=== PATIENT | male | born 1955 | race Caucasian/White ===

== ENCOUNTER → 2016-06-09 | Outpatient (CLI) | payer OTHER ==
[~2016-06-09] MED LIST: AMLO-114 PO; ASPI81CH2 PO; ATOR-26 PO; CLOP1TAB5 PO; IMDSR30 PO; ISOS30TA3 PO; LPR25 PO; LSN/2025 PO; METO25TA56 PO; NITR0.4S UT; POTA10CA28 PO; VGR50 PO
[2016-06-09 17:42] LABS: BASO % 0.6 %; BASO ABS # 0.05 K/uL (0-0.2); COMPLETE YES; EOS % 4.8 %; HEMATOCRIT 44.5 % (42-52); IG% 0.1 %; LYMPH % 28.1 %; LYMPH ABS # 2.42 K/uL (1.2-3.4); MEAN CORPUSCULAR HEMOGLOBIN 32.2 pg (25-34); MEAN CORPUSCULAR HGB CONC 36.2 g/dl (32-36); MEAN PLATELET VOLUME 9.6 fL (7.4-10.4); NEUT % 56.4 %; PLATELET COUNT 193 K/uL (130-400)
[2016-06-09 17:52] LABS: PARTIAL THROMBOPLASTIN RATIO 1.1; PROTHROMBIN TIME (PATIENT) 11.1 SECONDS (9.0-12.0)
[2016-06-09 18:13] LABS: BLOOD UREA NITROGEN 13 mg/dl (7-18); BUN/CREATININE RATIO 13.3 (10-20); CALCIUM 8.9 mg/dl (8.5-10.1); CARBON DIOXIDE 27 mmol/L (21-32); CHLORIDE 101 mmol/L (98-107); GLUCOSE 101 mg/dl (70-99); POTASSIUM 3.2 mmol/L (3.5-5.1); SODIUM 139 mmol/L (136-145)
== END | disposition home or self-care (01) ==
LOC: C.LAB1850 16:43
PROVIDERS: ATTEND Internal Medicine
DX: I20.9 Angina pectoris, unspecified (principal)

== ENCOUNTER 2016-06-11 10:15 | Observation (INO) | payer OTHER ==
[2016-06-11] VITALS (11 sets, daily range): BP systolic 117–136; BP diastolic 67–81; PULSE 62–94; TEMP 36.5–36.7; O2SAT 91–98; Ht 170.2 cm; Wt 106.7 kg
[~2016-06-11] VITALS: Ht 170.2 cm; Wt 106.7 kg
[~2016-06-11 10:15] MED LIST changes: -AMLO-114 PO; -ISOS30TA3 PO; -LPR25 PO; -POTA10CA28 PO; -VGR50 PO
[2016-06-11] MEDS ORDERED: VGR50 PO (11:12)
[2016-06-11] MEDS ORDERED: AMLO-114 PO (11:12)
[2016-06-11] MEDS ORDERED: ASPIRIN 81 MG CHEW ONE (12:47)
[2016-06-11] MEDS ORDERED: HEPARIN SOD (PORCINE) 1000 UNIT/ML 10 ML VIAL ONE (13:02)
[2016-06-11] MEDS ORDERED: FENTANYL CITRATE INJ 50 MCG/1 ML 2 ML VIAL ONE (13:02)
[2016-06-11] MEDS ORDERED: NiCARDipine HCL INJ 2.5 MG/ML 10 ML AMP ONE (13:02)
[2016-06-11] MEDS ORDERED: MIDAZOLAM HCL 1 MG/ML 2ML VIAL ONE (13:02)
[2016-06-11] MEDS ORDERED: NITROGLYCERIN/D5W 100MCG/ML 20ML SYR ONE (13:03)
[2016-06-11] MEDS ORDERED: CLOPIDOGREL BISULFATE 300 MG TAB PO ONE (14:26)
--- NOTE | 2016-06-11 14:36 | History & Physical Bridge Note ---
H&P Re-Evaluation Bridge Note: I have examined the patient, reviewed the History & Physical and in the interval since the performance of the History & Physical I have noted the following changes of clinical significance: No changes noted
--- NOTE | 2016-06-11 14:36 | Procedure Note ---
Pre-Mod Sedation Assessment General Date of Moderate Sedation: Jun 11, 2016. Vital Signs: Vital Signs Past 12 Hours Date Time Temp Pulse Resp B/P Pulse Ox O2 Delivery O2 Flow Rate FiO2 06/11/16 14:30 76 16 142/76 96 Room Air 06/11/16 14:25 Room Air 06/11/16 14:20 Room Air 06/11/16 14:15 75 16 154/87 96 Room Air 06/11/16 10:22 36.5 69 16 129/67 98 Room Air Review Cardiovascular: regular rate, rhythm, no edema, no gallop, no JVD Abdomen: normal bowel sounds, non tender, soft Lungs: chest non-tender, lungs clear, normal breath sounds Airway Class: II Pre-Sedation Airway Assessment Oral Cavity: Dentures Able to Visualize Vocal Cords: No Short Thick Neck: No Hx of Sleep Apnea: No Smoking Status: Never Smoker Mallampati Classification: Class III ASA Classification: Class II Procedure Planning Contraindications-for Mod Sed: None Yes Notes The planned sedation has been discussed with the patient and consent obtained. I have identified the patient, determined the appropriateness of sedation and have assessed the patient immediately prior to the procedure. All medicine(s) and interventions are by my order.
--- NOTE | 2016-06-11 14:37 | Procedure Note ---
Post-Mod Sedation Assessment General Date of Moderate Sedation Jun 11, 2016. Vital Signs: Vital Signs Past 12 Hours Date Time Temp Pulse Resp B/P Pulse Ox O2 Delivery O2 Flow Rate FiO2 06/11/16 14:30 76 16 142/76 96 Room Air 06/11/16 14:25 Room Air 06/11/16 14:20 Room Air 06/11/16 14:15 75 16 154/87 96 Room Air 06/11/16 10:22 36.5 69 16 129/67 98 Room Air Review - Discharge Criteria Vital Signs Stable: Yes Alert/Oriented/Conversant: Yes Returned to Baseline Mental St: Yes Nausea Absent/Minimal: Yes Pain/Discomfort/Absent/Minimal: Yes Normal/Baseline Respirations: Yes Active Bleeding?: No Pt Received D/C Instructions: No Prescriptions Given: None Specific Proced. D/C Criteria Distal Pulses Present (Cardiac: Yes Groin site assessed-Card Cath: N/A Voided Prior To Discharge: N/A Discharged Patients Adult Escort/Transportation: Yes
[2016-06-11] MEDS ORDERED: SODIUM CHLORIDE 0.9% 1000ML 1,000 ML IV SCH (14:45)
[2016-06-11] MEDS ORDERED: ACETAMINOPHEN 325 MG TAB PO PRN (14:45)
[2016-06-11] MEDS ORDERED: NITROGLYCERIN 0.4 MG SL PER TAB CHARGE UT SCH (14:45)
[2016-06-11] MEDS ORDERED: ONDANSETRON INJ 2 MG/ML 2 ML VIAL IV PRN (14:45)
--- NOTE | 2016-06-11 15:04 | Cardiac Catheterization ---
Procedure Note Procedure Date Jun 11, 2016. 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 Whitmore Corrections Caseworker(s) Lele Estimated Blood Loss 20 Medication(s) Fentanyl, Heparin, Nicardipine, Nitroglycerin, Versed, Lidocaine 1% Summary of Findings Indication: Accelerating angina Access: 6 Fr slender sheath right radial artery Catheters: [place], EBU 3.5 Findings: LM - Luminal irregularities LAD - 30-40% distal in-stent restenosis, 95% focal stenosis at distal end of mid LAD stent at level of small 3r diagonal. 3rd diagonal with 80% ostial stenosis Circumflex - Non-dominant, 50-60% mid segment stenosis - not significantly changed from 2014 RCA - Dominant, proximal stents are patent with 20-30% in-stent restenosis, mild distal disease. 30% ostial PDA disease. Mild distal CATRINA/PLB disease. PCI: Equipment: BMW wire, 2.5 x 12 TREK balloon, 3.0 x 26 Resolute JERRICA, 3.5 x 12 NC TREK Antithrombotic therapy: Heparin to ACT >250 Procedure: BMW wire placed past lesion into distal LAD. Lesion predilated with 2.5 balloon 3.0 x 26 Resolute JERRICA overlapped with prior mid LAD stent Stent post-dilated with 3.5 NC balloon Good angiographic result with well-expanded stent, JENNA 3 flow and no significant residual stenosis. Very small OM3 subtotally occluded post stent deployment. Improving TIMI1-2 flow with final images and chest pain free. Arterial Closure: TR Band Summary: 1. Severe single vessel coronary artery disease - 95% stenosis at distal edge of prior mid LAD stent 2. Successful PCI of mid LAD lesion with 3.0 x 26 Resolute JERRICA overlapped with prior stent Recommendations: Admit to telemetry for observation Reloaded with plavix 300 mg in laborer landscape Continue dual-antiplatelet therapy with ASA/Plavix for at least 6 months Continue home statin, and prior antihypertensives Cardiac Rehab Family interested in patient referral to weight management. Hemodynamics Rest Ao: 99/63/78 Final Ao: 152/79/109 LV: n/a Recommendations PCI without planned CABG Specimens None Radiation Exposure (mGy) 2260 Contrast (mls) 135 Opti Fluids (cc crystalloids) 130 Drains None Anesthesia Moderate Procedural Complication(s) None Disposition PCU ACC Data Cardiac Status Clinical evaluation leading to the procedure CAD Presntation: Unstable angina Anginal Classification: CCS IV Heart Failure: No, NYHA Class: CCS I Cardiogenic Shock w/in 24Hrs: No Cardiac Arrest w/in 24Hrs: No Imaging studies past 6 months: No Stress studies past 6 months: No Standard Exercise Stress Test: No Stress Echocardiogram: No Stress Testing w/SPECT MPI: No Cardiac CTA: No Coronary Anatomy Dominant: Right Left Main (% Stenosis): Normal LAD (% Stenosis): Mid (95% at distal edge of stent) Circumflex (% Stenosis): Mid (50-60) RCA (% Stenosis): Proximal (20-30 instent) Diagnostic Physician's Name: Aiden Whitmore MD Closure Device Percutaneous Entry Location: Radial Closure Device: Radial Band Recommendations: PCI without planned CABG PCI Indication: Unstable Angina, Angina despite med therapy Lesion Segment Name: MID LAD Culprit Artery: Yes Stenosis Prior to Rx (%): 95 Chronic Total Occlusion: No IVUS: No FFR: No Pre-Procedure JENNA Flow: 3 Previously Treated Lesion: No Lesion Complexity: Non-High/Non-C Lesion Length (mm): 12 Thrombus Present: No Bifurcation Lesion: No Guidewire Across Lesion: Yes Guidewire: Stenosis Post-Procedure (%): 0 Post-Procedure JENNA Flow: 3 Device(s) Deployed: Yes Type of Device(s): RESOLUTE 3.0 X 26 Intraprocedure Events Significant Dissection: No Perforation: No
[2016-06-11] MEDS ORDERED: IV FLUIDS COMPLETED PRN (15:30)
[2016-06-11] MEDS: LISINOPRIL/HCTZ 20/25MG TAB PO SCH (19:56)
[2016-06-11] MEDS ORDERED: ATORVASTATIN 40 MG TAB PO SCH (21:00)
[2016-06-12 04:00] VITALS: BP 119/76; PULSE 68; TEMP 36.6; O2SAT 92
[2016-06-12 06:53] LABS: BASO % 0.7 %; BASO ABS # 0.05 K/uL (0-0.2); COMPLETE YES; EOS % 4.7 %; HEMATOCRIT 43.7 % (42-52); IG% 0.1 %; LYMPH % 24.5 %; LYMPH ABS # 1.88 K/uL (1.2-3.4); MEAN CELL VOLUME 90.9 fL (80-100); MEAN CORPUSCULAR HGB CONC 35.2 g/dl (32-36); MEAN PLATELET VOLUME 9.4 fL (7.4-10.4); MONO % 6.1 %; NEUT % 63.9 %; PLATELET COUNT 181 K/uL (130-400); RED BLOOD COUNT 4.81 M/uL (4.7-6.1); WHITE BLOOD COUNT 7.67 K/uL (4.8-10.8)
[2016-06-12 07:31] VITALS: BP 122/63; PULSE 65; TEMP 36.8; O2SAT 94
[2016-06-12 07:31] LABS: BUN/CREATININE RATIO 16.9 (10-20); CALCIUM 8.5 mg/dl (8.5-10.1); CREATININE 0.93 mg/dl (0.60-1.40); POTASSIUM 3.5 mmol/L (3.5-5.1)
[2016-06-12] MEDS: LISINOPRIL/HCTZ 20/25MG TAB PO SCH (07:42)
[2016-06-12] MEDS ORDERED: CLOPIDOGREL BISULFATE 75 MG TAB PO SCH (09:00)
[2016-06-12] MEDS ORDERED: ASPIRIN 81 MG ECTAB PO SCH (09:00)
[2016-06-12] MEDS ORDERED: METOPROLOL TARTRATE 25 MG TAB PO SCH (09:00)
[2016-06-12] MEDS ORDERED: AMLODIPINE BESYLATE 5 MG TAB PO SCH (09:00)
[2016-06-12] MEDS ORDERED: LPR25 PO (10:35)
--- NOTE | 2016-06-12 10:38 | Discharge Instructions ---
Discharge Instructions Admission Reason for Admission: Chest Pain *Dr Whitmore To Do* Discharge Discharge Diagnosis / Problem: Coronary artery disease Discharge Goals Goal(s): Improve function Activity Recommendations Activity Limitations: per Instructions/Follow-up section Lifting Limitations: no more than 5 pounds ( for 3 days) Exercise/Sports Limitations: gradually increase as tolerated May Resume Sexual Activity: after one week Driving or Machine Use: resume 3 days after discharge . Instructions / Follow-Up Instructions / Follow-Up appointment requested with Thien or Dr. Whitmore Current Hospital Diet Patient's current hospital diet: AHA Diet (Heart Healthy) Discharge Diet Recommended Diet: AHA Diet (Heart Healthy) Procedures Procedures Performed: Cardiac catheterization - one new drug eluting stent placed in the LAD Pending Studies Studies pending at discharge: no Work Instructions Return To Work: 1 week Lifting Limitations: 5 lbs for 3 days Medical Emergencies . Who to Call and When: Medical Emergencies: If at any time you feel your situation is an emergency, please call 911 immediately. . Non-Emergent Contact Non-Emergency issues call your: Primary Care Provider, Plastic Sewer . . "Provider Documentation" section prepared by Abhilash Casas. VTE Core Measure Inpt VTE Proph given/why not?: Unfractionated heparin SQ
--- NOTE | 2016-06-12 10:41 | Discharge Summary ---
Discharge Summary Admission Date: Jun 11, 2016 at 14:42 Discharge Date: Jun 12, 2016 Discharge Disposition: Home Primary Diagnosis: Unstable angina Secondary Diagnoses/Problems: CAD Procedures: cath 06/11/16 - one JERRICA LAD Discharge Instructions Last Recorded Wt (Kilograms): 106.700 Activity Recommendations: lifting limitation, exercise/sex/sports limit, driving or machine use limit Diet At Discharge: low sodium, low cholesterol Allergies: Coded Allergies: Labetalol (Unverified Allergy, Mild, hallucination, 06/11/16) Discharge Medications: Medications Dose Route/Sig Max Daily Dose Days Date Category Lopressor (Metoprolol Tartrate) 25 Mg Tab 12.5 Mg PO BID 90 06/12/16 Rx Viagra (Sildenafil Citrate) 50 Mg Tab 50 Mg PO PRN 06/11/16 Reported Norvasc (Amlodipine Besylate) 10 Mg Tab 10 Mg PO DAILY 06/11/16 Reported Lopressor (Metoprolol Tartrate) 25 Mg Tab 12.5 Mg PO DAILY 02/23/14 Reported Plavix (Clopidogrel Bisulfate) 75 Mg Tab 75 Mg PO DAILY 02/23/14 Reported Nitrostat (Nitroglycerin) 0.4 Mg Sub 0.4 Mg UT PRN 02/23/14 Reported Lipitor (Atorvastatin Calcium) 80 Mg Tab 80 Mg PO HS 02/23/14 Reported Aspirin 81 Mg Chw 81 Mg PO DAILY 02/23/14 Reported Lisinopril/Hctz 20/25 Mg (HCTZ/Lisinopril) 1 Ea Tab 1 Tab PO BID 02/23/14 Reported Special Care: Call your doctor if: * Temperature above 101 degrees * Pain not relieved by pain medicine ordered * There is increased drainage or redness from any incision * You have any unanswered questions or concerns. Avoid all tobacco products. If you need help to stop smoking, call [place] FREE QUITLINE at . This is a free call. Admission HPI [facility] - cath 06/11/16 - one JERRICA LAD good result. Hospital Course one JERRICA LAD 06/11/16 - good result. asymptomatic overnight. f/u with Thien or Haim. residual LCx disease - PCI in future if symptomatic. no new meds. discharge today. run of tachycardia overnight - asymptomatic. continue BB. titrate as able as an outpatient. Total time spent on discharge = 45 This includes examination of the patient, discharge planning, medication reconciliation, and communication with other providers.
[2016-06-12 11:14] VITALS: BP 122/63; PULSE 65; TEMP 36.8; O2SAT 94
== END 2016-06-12 11:57 | disposition home or self-care (01) ==
LOC: C.CATH 10:15 → C.2T 14:42
PROVIDERS: ADMIT Internal Medicine Interventional Cardiology; ATTEND Internal Medicine Interventional Cardiology
DX: I25.110 Atherosclerotic heart disease of native coronary artery with unstable angina pectoris (principal); I10 Essential (primary) hypertension; E78.5 Hyperlipidemia, unspecified; Z87.891 Personal history of nicotine dependence; Z79.82 Long term (current) use of aspirin

== ENCOUNTER 2016-06-22 09:46 | Emergency (ER) | payer OTHER ==
[~2016-06-22] VITALS: Ht 170.2 cm; Wt 106.7 kg
[~2016-06-22 09:46] MED LIST changes: +AMLO-114 PO; -IMDSR30 PO; +LPR25 PO; -METO25TA56 PO; +VGR50 PO
[2016-06-22 09:53] VITALS: TEMP 37.6; Ht 170.2 cm; Wt 106.7 kg
[2016-06-22 10:07] VITALS: O2SAT 93
[2016-06-22 10:51] LABS: HEMATOCRIT 44.3 % (42-52); MEAN CELL VOLUME 89.3 fL (80-100); MEAN CORPUSCULAR HEMOGLOBIN 32.7 pg (25-34); MEAN CORPUSCULAR HGB CONC 36.6 g/dl (32-36); MEAN PLATELET VOLUME 9.5 fL (7.4-10.4); PLATELET COUNT 209 K/uL (130-400); RED BLOOD COUNT 4.96 M/uL (4.7-6.1); WHITE BLOOD COUNT 7.35 K/uL (4.8-10.8)
[2016-06-22] MEDS ORDERED: POTA10CA28 PO (10:53)
[2016-06-22 11:00] LABS: ALT/SGPT 50 U/L (12-78); BLOOD UREA NITROGEN 17 mg/dl (7-18); BUN/CREATININE RATIO 17.1 (10-20); CALCIUM 9.1 mg/dl (8.5-10.1); CARBON DIOXIDE 28 mmol/L (21-32); CHLORIDE 101 mmol/L (98-107); GLUCOSE 123 mg/dl (70-99); POTASSIUM 3.6 mmol/L (3.5-5.1); SODIUM 139 mmol/L (136-145)
[2016-06-22 11:02] LABS: INR 1.1 (0.9-1.1); PARTIAL THROMBOPLASTIN RATIO 1.1; PROTHROMBIN TIME (PATIENT) 11.3 SECONDS (9.0-12.0)
[2016-06-22 11:04] LABS: ALB/GLOB RATIO 1.2 (0.9-2); ALKALINE PHOSPHATASE 52 U/L (45-117); AST/SGOT 26 U/L (15-37)
--- NOTE | 2016-06-22 11:09 | DIAGNOSTIC IMAGING REPORT ---
SINGLE VIEW CHEST CLINICAL HISTORY: Atypical chest pain. FINDINGS: An AP, portable, upright chest radiograph is compared to study dated 12/26/2012. Correlation is made with chest CT dated 12/15/2009. The examination is mildly degraded by portable technique and apical lordotic positioning. The cardiomediastinal silhouette is unremarkable. The lungs and pleural spaces are clear. No pneumothorax is seen. The bony thorax is grossly intact. IMPRESSION: No acute cardiopulmonary abnormality. Electronically signed by: Nayan Delgado M.D. 06/22/2016 11:07 AM Dictated Date/Time: 06/22/2016 11:06 AM
[2016-06-22] MEDS ORDERED: ISOS30TA3 PO (12:12)
[2016-06-22 12:33] VITALS: BP 130/73; PULSE 59; O2SAT 92
--- NOTE | 2016-06-22 14:53 | EMERGENCY ROOM VISIT NOTE ---
History Report prepared by Leah: Mya Miranda Under the Supervision of: Dr. Nayan Carr M.D. First contact with patient: 10:32 Chief Complaint: CHEST PAIN Stated Complaint: CHEST PAIN - STENT PLACEMENT ON 06/11 Nursing Triage Summary: stent on jun 11, started having chest pain since , pt tried to call his pcp unable to get in so he decided to wait until today, pain comes and go denies pain at present History of Present Illness The patient is a 60 year old male who presents to the Emergency Room with complaints of intermittent episodes of pain to his left chest, radiating to his left neck, over the past 6 days. Currently, he is in minor discomfort, but when rizwana a pain it reaches up to a 4/10 on the pain scale, and lasts for about 10-30 seconds before resolving on its own. Patient states that he was recently experiencing pain to his left chest in the begging of the month, and had a coronary stent placed by Dr. Whitmore of cardiology on 06/11/16. Patient states that this was his fourth stent. After having the stent placed, patient was doing well and was improving well, however, 6 days ago, he began having intermittent pains to his left chest, radiating to his left neck. Patient denies exacerbation of symptoms with exertion, and states that nothing seems to provoke it or make it better. He denies becoming short of breath, nauseous or diaphoretic when rizwana a pain. The patient did attempt to call his vice president lending's office, but has not yet been able to schedule a post operative follow up appointment. However, as his pain has persisted, he came to the ED for further evaluation today. He denies recent fevers, chills, cough, abdominal pain, vomiting, diarrhea, urinary symptoms or swelling to his extremities . Patient is currently on Plavix, aspirin, lisinopril with HCTZ and metoprolol. He is also prescribed nitroglycerin PRN, but he has not recently taken any. Source of History: patient Onset: over the past 6 days Position: chest Symptom Intensity: 4/10 Timing: intermittent Associated Symptoms: + neck pain (radiating from left chest), No SOB, No abdominal pain, No chills, No cough, No diaphoresis, No diarrhea, No nausea, No urinary symptoms, No vomiting Review of Systems See HPI for pertinent positives & negatives. A total of 10 systems reviewed and were otherwise negative. Past Medical & Surgical Medical Problems: (1) CAD (coronary artery disease) (2) HTN (hypertension) Surgical Problems: (1) H/O heart artery stent Social History Smoking Status: Former Smoker Marital Status: single Occupation Status: employed Current/Historical Medications Scheduled Amlodipine (Norvasc), 10 MG PO DAILY Aspirin (Aspirin), 81 MG PO DAILY Atorvastatin (Lipitor), 80 MG PO HS Clopidogrel Bisulfate (Plavix), 75 MG PO DAILY Hctz/Lisinopril (Lisinopril/Hctz 20/25 Mg), 1 TAB PO BID Isosorbide Mononitrate Ext Rel (Imdur Ext Rel), 1 TAB PO DAILY Metoprolol Tartrate (Lopressor), 12.5 MG PO BID Nitroglycerin (Nitrostat), 0.4 MG UT PRN Potassium Chloride (Micro-K Ext Rel), 10 MEQ PO DAILY Allergies Coded Allergies: Labetalol (Unverified Allergy, Mild, hallucination, 06/22/16) Physical Exam Vital Signs Date Time Temp Pulse Resp B/P Pulse Ox O2 Delivery O2 Flow Rate FiO2 06/22/16 12:33 59 18 130/73 92 06/22/16 11:18 60 14 131/64 92 Room Air 06/22/16 10:16 94 Room Air 06/22/16 10:07 93 Room Air 06/22/16 09:55 67 06/22/16 09:53 37.6 67 18 168/95 93 Room Air Physical Exam GENERAL: Patient is in no acute distress. HEENT: No acute trauma, normocephalic atraumatic, mucous membranes moist, no nasal congestion, no scleral icterus. NECK: No stridor, no adenopathy, no meningismus, trachea is midline. LUNGS: Clear to auscultation bilaterally, no wheeze, no rhonchi, breath sounds equal. HEART: 2/6 systolic murmur with a regular rate and rhythm. ABDOMEN: Soft, nontender, bowel sounds positive, no hernias, no peritonitis. EXTREMITIES: No cyanosis or edema, full range of motion of all the joints without pain or difficulty, no signs for acute trauma. NEUROLOGIC: Oriented x 3, no acute motor or sensory deficits, no focal weakness. SKIN: No rash, no jaundice, no diaphoresis. Medical Decision & Procedures ER Provider Diagnostic Interpretation: X-ray results as stated below per interpretation by me and the radiologist: SINGLE VIEW CHEST CLINICAL HISTORY: Atypical chest pain. FINDINGS: An AP, portable, upright chest radiograph is compared to study dated 12/26/2012. Correlation is made with chest CT dated 12/15/2009. The examination is mildly degraded by portable technique and apical lordotic positioning. The cardiomediastinal silhouette is unremarkable. The lungs and pleural spaces are clear. No pneumothorax is seen. The bony thorax is grossly intact. IMPRESSION: No acute cardiopulmonary abnormality. Electronically signed by: Nayan Delgado M.D. 06/22/2016 11:07 AM Dictated Date/Time: 06/22/2016 11:06 AM Laboratory Results 06/22/16 10:03 06/22/16 10:03 Test 06/22/16 10:03 Red Blood Count 4.96 M/uL (4.7-6.1) Mean Corpuscular Volume 89.3 fL (80-100) Mean Corpuscular Hemoglobin 32.7 pg (25-34) Mean Corpuscular Hemoglobin Concent 36.6 g/dl (32-36) RDW Standard Deviation 41.4 fL (36.4-46.3) RDW Coefficient of Variation 12.8 % (11.5-14.5) Mean Platelet Volume 9.5 fL (7.4-10.4) Prothrombin Time 11.3 SECONDS (9.0-12.0) Prothromb Time International Ratio 1.1 (0.9-1.1) Activated Partial Thromboplast Time 28.0 SECONDS (21.0-31.0) Partial Thromboplastin Ratio 1.1 Anion Gap 10.0 mmol/L (3-11) Est Creatinine Clear Calc Drug Dose 93.8 ml/min Estimated GFR () 95.7 Estimated GFR (Non- 82.6 BUN/Creatinine Ratio 17.1 (10-20) Calcium Level 9.1 mg/dl (8.5-10.1) Total Bilirubin 0.5 mg/dl (0.2-1) Aspartate Amino Transf (AST/SGOT) 26 U/L (15-37) Alanine Aminotransferase (ALT/SGPT) 50 U/L (12-78) Alkaline Phosphatase 52 U/L (45-117) Troponin I < 0.015 ng/ml (0-0.045) Total Protein 7.0 gm/dl (6.4-8.2) Albumin 3.8 gm/dl (3.4-5.0) Globulin 3.2 gm/dl (2.5-4.0) Albumin/Globulin Ratio 1.2 (0.9-2) Laboratory results reviewed by me. ECG Indication: chest pain Rate (beats per minute): 67 Rhythm: normal sinus Findings: no acute ischemic change, no ectopy ED Course 1033: The patient was evaluated in room A3. A complete history and physical exam was performed. 1043: Dr. Whitmore of cardiology has been contacted. He will be in to evaluate the patient. 1155: Dr. Whitmore has evaluated the patient. He advised starting the patient on 30 mg Imdur qd. 1215: Upon reevaluation, the patient was doing well and appeared to be resting more comfortably. I updated him on the results of his radiology reports and lab tests as well as my discussion with Dr. Whitmore. Discharge instructions were also discussed at this time. He verbalized his understanding and agreement with the treatment plan, and he is now ready for disposition. Medical Decision The patient is a 60 year old male who presents to the ED with complaints of intermittent chest pain over the past 6 days. Differential diagnoses considered include cardiac ischemia, IL, angina, musculoskeletal pain, pneumonia , pneumothorax, and aortic dissection. There is no leukocytosis or concerning anemia. No significant electrolyte abnormality, kidney failure, hepatitis. EKG shows a normal sinus rhythm, no acute ischemia. Cardiac enzyme testing 1 is not consistent with acute cardiac injury. Chest x-ray does not show mediastinal widening, pneumonia or pneumothorax. The patient presents with episodic short-lived chest pain which is intermittent and not always exertional. He had just undergone cardiac stenting. I spoke with Dr. Whitmore of cardiology. He came and talked with the patient. The patient is being discharged on a daily dose of Imdur, he can return for worsening symptoms. He will be followed as an outpatient. Consults Time Called: 1040, 1250 Consulting Physician: Dr. Whitmore - cardiology Returned Call: [phone], [phone]: Discussed the patient's case. He will be in to see him. 1255: Dr. Whitmore has evaluated the patient. He advised starting him on 30 mg Imdur qd. Impression Primary Impression: Precordial chest pain Scribe Attestation The scribe's documentation has been prepared under my direction and personally reviewed by me in its entirety. I confirm that the note above accurately reflects all work, treatment, procedures, and medical decision making performed by me. Departure Information Dispostion Home / Self-Care Prescriptions Isosorbide Mononitrate Ext Rel (Imdur Ext Rel) 30 Mg Ertab 1 TAB PO DAILY for 30 Days, #30 TAB 5 Refills Prov: Nayan Carr M.D. 06/22/16 Referrals Aiden Brewer M.D. (PCP) Forms HOME CARE DOCUMENTATION FORM, IMPORTANT VISIT INFORMATION Patient Instructions My [facility] Additional Instructions start imdur daily follow with cardiology return for worsening symptoms or shortness of breath lab testing today was all ok
== END 2016-06-22 12:36 | disposition home or self-care (01) ==
LOC: C.EDB 09:47 → C.EDA 12:36
DX: R07.2 Precordial pain (principal); Z95.5 Presence of coronary angioplasty implant and graft; Z79.02 Long term (current) use of antithrombotics/antiplatelets; Z79.82 Long term (current) use of aspirin; Z79.899 Other long term (current) drug therapy; I10 Essential (primary) hypertension; I25.10 Atherosclerotic heart disease of native coronary artery without angina pectoris

== ENCOUNTER → 2016-10-01 | Outpatient (CLI) | payer OTHER ==
[~2016-10-01] MED LIST changes: +ISOS30TA3 PO; -LPR25 PO; +POTA10CA28 PO; -VGR50 PO
[2016-10-01 14:24] LABS: ALB/GLOB RATIO 1.4 (0.9-2); ALKALINE PHOSPHATASE 50 U/L (45-117); ALT/SGPT 50 U/L (12-78); AST/SGOT 28 U/L (15-37); BLOOD UREA NITROGEN 16 mg/dl (7-18); BUN/CREATININE RATIO 15.8 (10-20); CALCIUM 8.7 mg/dl (8.5-10.1); CARBON DIOXIDE 28 mmol/L (21-32); CHLORIDE 106 mmol/L (98-107); GLUCOSE 91 mg/dl (70-99); HDL CHOLESTEROL 36 mg/dl; POTASSIUM 3.7 mmol/L (3.5-5.1); SODIUM 141 mmol/L (136-145)
[2016-10-01 14:35] LABS: CHOLESTEROL 116 mg/dl (0-200); CHOLESTEROL/HDL RATIO 3.2; LDL CHOLESTEROL CALCULATED 59 mg/dl; THYROID STIMULATING HORMONE 0.632 uIu/ml (0.300-4.500); TRIGLYCERIDES 103 mg/dl (0-150); VERY LOW DENSITY LIPOPROT CALC 21 mg/dl
== END | disposition home or self-care (01) ==
LOC: C.LABBFT 08:07
PROVIDERS: ATTEND Physician Assistant
DX: Z11.59 Encounter for screening for other viral diseases (principal); I25.10 Atherosclerotic heart disease of native coronary artery without angina pectoris; Z12.5 Encounter for screening for malignant neoplasm of prostate

== ENCOUNTER → 2017-03-09 | Outpatient (CLI) | payer OTHER | END | disposition home or self-care (01) | LOC: C.LABSPEC 16:42 | PROVIDERS: ATTEND Dermatology | DX: R21 Rash and other nonspecific skin eruption (principal); H57.8 Other specified disorders of eye and adnexa ==

== ENCOUNTER → 2017-03-09 | Outpatient (CLI) | payer OTHER | END | disposition home or self-care (01) | LOC: C.PATHSPEC 03-07 16:41 | PROVIDERS: ATTEND Dermatology | DX: L40.9 Psoriasis, unspecified (principal) ==

== ENCOUNTER → 2017-04-27 | Outpatient (CLI) | payer OTHER ==
[2017-04-27 09:39] LABS: BASO % 0.4 %; BASO ABS # 0.03 K/uL (0-0.2); COMPLETE YES; EOS % 4.9 %; HEMATOCRIT 44.4 % (42-52); IG% 0.3 %; LYMPH % 24.5 %; LYMPH ABS # 1.75 K/uL (1.2-3.4); MEAN CELL VOLUME 91.5 fL (80-100); MEAN CORPUSCULAR HEMOGLOBIN 31.5 pg (25-34); MEAN CORPUSCULAR HGB CONC 34.5 g/dl (32-36); MEAN PLATELET VOLUME 9.5 fL (7.4-10.4); MONO % 4.8 %; NEUT % 65.1 %; PLATELET COUNT 183 K/uL (130-400); RED BLOOD COUNT 4.85 M/uL (4.7-6.1); WHITE BLOOD COUNT 7.14 K/uL (4.8-10.8)
[2017-04-27 10:03] LABS: ALKALINE PHOSPHATASE 73 U/L (45-117); ALT/SGPT 51 U/L (12-78); AST/SGOT 47 U/L (15-37)
== END | disposition home or self-care (01) ==
LOC: C.LAB1850 07:39
PROVIDERS: ATTEND Dermatology
DX: R21 Rash and other nonspecific skin eruption (principal); L40.9 Psoriasis, unspecified; B35.3 Tinea pedis

== ENCOUNTER → 2017-07-06 | Outpatient (CLI) | payer OTHER ==
[2017-07-06 12:35] LABS: ALBUMIN 3.9 gm/dl (3.4-5.0); TOTAL PROTEIN 7.7 gm/dl (6.4-8.2)
== END | disposition home or self-care (01) ==
LOC: C.LAB1850 10:07
PROVIDERS: ATTEND Dermatology
DX: B35.1 Tinea unguium (principal)

== ENCOUNTER → 2017-07-09 | Outpatient (CLI) | payer OTHER | END | disposition home or self-care (01) | LOC: C.PATHSPEC 13:41 | PROVIDERS: ATTEND Physician Assistant | DX: D23.39 Other benign neoplasm of skin of other parts of face (principal) ==

== ENCOUNTER → 2018-01-04 | Outpatient (CLI) | payer OTHER ==
[~2018-01-04] MED LIST changes: -AMLO-114 PO; +AMLO10TA3 PO; +LISI20TA11 PO; -LSN/2025 PO
[2018-01-04 11:08] LABS: ALBUMIN 3.7 gm/dl (3.4-5.0)
== END | disposition home or self-care (01) ==
LOC: C.LAB1850 10:01
PROVIDERS: ATTEND Physician Assistant
DX: L40.9 Psoriasis, unspecified (principal)

== ENCOUNTER 2023-10-03 11:32 | Inpatient (IN) ==
--- NOTE | 2023-10-03 11:48 | Emergency Department Note ---
Impression & Plan NSTEMI (non-ST elevated myocardial infarction), Psoriasis, CAD (coronary artery disease), Hypertensive emergency, Acute hyperglycemia ED Provider Note NAME: RONALD JUSTIN AGE: 68 SEX: M : 1955 ARRIVES VIA: Walk-In INFORMANT: Patient, ED PROVIDER(S): Wade Robles MD CHIEF COMPLAINT: Chest pain MEDICAL DECISION MAKING: Patient presents due to concern for chest pain. IV was established and blood work was obtained along with an EKG troponin and chest x-ray. Patient was ordered 324 of aspirin and sublingual nitro. Patient was noted to be hypertensive. Blood work shows a normal white count H&H and platelet count patient's kidney function is unremarkable patient's blood sugar is 313 not DKA. Initial troponin of 334 patient was ordered heparin bolus and drip RQ did receive full dose aspirin. I did speak with on-call life skills specialist Dr. CUBA to ask whether or not the patient would benefit from Plavix load which he states yes given the patient has been off his Plavix. I did speak with the on-call hospitalist service Jose Alfredo Trujillo PA-C and Dr. Feliz. Patient has been reassessed and has no further chest pain at this time. The patient's blood pressure has improved. Patient was admitted to the medicine service Critical Care: I have personally spent 50 minutes of critical care time in direct management of this patient. This includes bedside care, interpretation of diagnostic studies, and testing, discussion with consultants, patient, and family members, and other require inpatient management activities. This 50 minutes is in excess of all separately billable procedures. Discussion w/ other healthcare providers: Dr. Lozoya with cardiology Jose Alfredo Trujillo PA-C and Dr. Feliz inpatient medicine service Prior /Outside records reviewed: None Differential diagnosis: Cardiac ischemia, aortic dissection, pulmonary embolism, pneumothorax, pneumonia, pericarditis, myocarditis, GERD, cholecystitis, pancreatitis, musculoskeletal, as well as other pathologies were considered. Diagnostics, as interpreted by me: ECG: Normal sinus rhythm, rate 65, normal intervals, normal axis Q-wave noted in lead III and aVF. Possible trace elevation in the anterior lateral leads but no significant concavity noted.Patient is Q waves appear to be chronic in nature. Patient may have more poor R wave progression from comparison June 22, 2016 Cardiac monitoring: An order was placed for continuous cardiac monitoring. The monitor shows a rate of 62 with sinus rhythm. Patient was placed on pulse oximetry Medical decision rules: Heart score Imaging studies: I informally interpreted the patient's chest x-ray without obvious pneumonia or pneumothorax with formal report to follow. HPI: Patient presents due to concern for chest pain. 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 This lasted approximate 30 minutes was centralized felt as though there was a pressure with occasional radiation toward his back. Patient states that he had a bowel movement and had resolution of his symptoms. Patient states that this morning he ate a bagel and did have some similar symptoms to where he had associated centralized chest pain that was nonradiating no associated nausea vomiting or diaphoresis but occurred at rest and was somewhere between a 6 and 8 out of 10 pain. Patient describes it as a pressure. Patient states that he was seated at the time this occurred. He has been out of his amlodipine and Plavix recently does have a known history of [place]. He does state that this does feel similar to when he had prior MIs. Patient denies any significant exertional symptoms and no significant change with exertion or rest. Patient's current pain he rates 1 out of 10 PAST MEDICAL HISTORY: See Below PAST SURGICAL HISTORY: See Below SOCIAL HISTORY: See Below HOME MEDICATIONS: See Below ALLERGIES: See Below VITALS: See Below PHYSICAL EXAMINATION: GENERAL: NAD, non-toxic. EYE EXAM: Normal conjunctiva. PERRL, no anisocoria and EOM's grossly intact w/o pain. OROPHARYNX: Moist mucus membranes, grossly normal dentition. NECK: Trachea midline, no stridor. LUNGS: Clear to auscultation. Normal chest wall mechanics. HEART: NSR, no MRG. ABDOMEN: Abdomen soft, non-tender, no masses, no rebound or guarding. BACK: No CVA TTP. SKIN: Plaque-like rash over the abdomen consistent with psoriasis. UPPER EXTREMITIES: Upper extremities are grossly normal. LOWER EXTREMITIES: Grossly normal, no edema. Negative Homans' sign bilaterally NEURO EXAM: A&O x3, cranial nerves II-XII grossly intact, normal speech, moves all 4 extremities. Past Med/Surg History Medical History Psoriasis Lymphadenopathy Angina pectoris Dizziness De Quervain's tenosynovitis Acute myocardial infarction Social History Smoking Status: Former smoker Tobacco Type: Cigarettes packs per day: 2; Smoking End Date: 05/2011; Hx Alcohol Use: No Preferred Language: German Communication Ability: Effective Color Developer Required: Yes Beliefs That Will Affect Care: None current occupational status: employed Other Information That Helps Us Care for You: No Feels Safe at Home: Yes Safety Concerns: Feels Safe At This Time Allergies Allergies Allergy/AdvReac Type Severity Reaction Status Date / Time labetalol Allergy Mild hallucinati Unverified 07/22/23 11:53 on Home Meds Home Medications Medication Instructions Recorded Confirmed Revitadeam Psoriasis Cream 1 applic topical 2XWK 07/22/23 10/03/23 atorvastatin 80 mg tablet 80 mg PO DAILY 10/03/23 10/03/23 valsartan 160 1 tab PO DAILY 10/03/23 10/03/23 mg-hydrochlorothiazide 25 mg tablet Previous Rx's Medication Instructions Recorded nitroglycerin 0.4 mg sublingual 0.4 mg sublingual Q5M PRN chest 09/23/20 tablet (Nitrostat) pain #1 tab amlodipine 10 mg tablet 10 mg PO DAILY #90 tabs 07/19/23 clopidogrel 75 mg tablet (Plavix) 75 mg PO DAILY #90 tabs 07/19/23 metoprolol succinate 25 mg 25 mg PO DAILY #90 tabs 07/19/23 tablet,extended release 24 hr Results & Data (ED) Vital Signs Vital Signs - 24 hr 10/03/23 11:39 10/03/23 11:39 10/03/23 11:39 Temperature 36.6 C Temperature Source Oral Pulse Rate 61 Pulse Rate [Apical] 61 Respiratory Rate 18 18 Respiratory Effort / Characteristics Non-Labored Respiratory Depth Normal Respiratory Pattern Regular Blood Pressure 221/119 H Blood Pressure [Left Arm] Blood Pressure Mean 153 Blood Pressure Mean [Left Arm] Pulse Oximetry 95 96 Oxygen Delivery Method Room Air Room Air Room Air Sepsis Recent Fever Within 48 Hours No Sepsis New/Unexplained Change in Mental Status N/A Sepsis Action Taken by Nursing No Action Required 10/03/23 11:45 10/03/23 12:07 10/03/23 12:14 Temperature Temperature Source Pulse Rate 59 L 77 Pulse Rate [Apical] 58 L Respiratory Rate 18 18 Respiratory Effort / Characteristics Respiratory Depth Respiratory Pattern Blood Pressure Blood Pressure [Left Arm] 208/95 H Blood Pressure Mean Blood Pressure Mean [Left Arm] 132 Pulse Oximetry 95 95 Oxygen Delivery Method Room Air Room Air Sepsis Recent Fever Within 48 Hours Sepsis New/Unexplained Change in Mental Status Sepsis Action Taken by Long-Term Medications Current Medication List: was personally reviewed by me Laboratory Data Attestation: I reviewed the patient's lab results. 10/03/23 11:42 10/03/23 11:42 Lab Results 10/03/23 10/03/23 Range/Units 11:42 11:48 WBC 7.23 (4.8-10.8) K/ul RBC 5.37 (4.70-6.10) M/uL Hgb 16.3 (14.0-18.0) g/dl POC Hgb 16.0 (14.0-18.0) g/dl Hct 47.4 (42.0-52.0) % POC Hct 47 (42-52) % MCV 88.3 (80.0-100.0) fL MCH 30.4 (25.0-34.0) pg MCHC 34.4 (32.0-36.0) g/dL RDW Std Deviation 41.0 (36.4-46.3) fL RDW Coeff of Ruth 12.8 (11.5-14.5) % Plt Count 214 (130-400) K/uL MPV 9.5 (9.4-12.4) fL Immature Gran % (Auto) 0.1 % Neut % (Auto) 65.4 % Lymph % (Auto) 25.0 % Lamar % (Auto) 6.4 % Eos % (Auto) 2.4 % Baso % (Auto) 0.7 % Neut # (Auto) 4.73 (1.40-6.50) K/uL Lymph # (Auto) 1.81 (1.20-3.40) K/uL Lamar # (Auto) 0.46 (0.11-0.59) K/uL Eos # (Auto) 0.17 (0.00-0.50) K/uL Baso # (Auto) 0.05 (0.00-0.20) K/uL Immature Gran # (Auto) 0.01 (0.01-0.20) K/uL APTT 29 (21-31) Seconds PTT Ratio 1.0 POC Sodium 137 (135-144) mmol/L Sodium 137 (136-145) mmol/L POC Potassium 3.5 (3.3-5.0) mmol/L Potassium 3.5 (3.5-5.1) mmol/L POC Chloride 97 L (101-112) mmol/L Chloride 101 (98-107) mmol/L Carbon Dioxide 29 (21-32) mmol/L POC Total CO2 28 (24-31) mmol/L Anion Gap 7 (3-11) POC Anion Gap 17.0 (16-25) mmol/L POC BUN 14 (7-18) mg/dl BUN 13 (6-23) mg/dl Creatinine 0.82 (0.6-1.4) mg/dl POC Creatinine 0.8 (0.6-1.3) mg/dl Est Cr Clr Drug Dosing 102.4 ml/min Est GFR ( Amer) 106.8 ml/min Est GFR (Non-Af Amer) 92.1 ml/min BUN/Creatinine Ratio 15.9 (10-20) Glucose 313 H* (70-99(Fasting)) mg/dl POC Glucose (other) 307 H (70-99) mg/dl Calcium 9.4 (8.6-10.3) mg/dl POC Ioniz Calcium Leatha 1.23 (1.12-1.32) mmol/l Total Bilirubin 0.8 (0.2-1.0) mg/dl AST 26 (13-39) U/L ALT 34 (7-52) U/L Alkaline Phosphatase 58 (34-104) U/L Troponin I High Sens 334.1 H* (0-20) pg/ml Total Protein 7.5 (6.0-8.3) gm/dl Albumin 4.5 (3.4-5.0) gm/dl Globulin 3.0 (2.5-4.0) gm/dl Albumin/Globulin Ratio 1.5 (0.9-2) Lipase 23 (11-82) U/L Administered Medications Heparin Sodium/Dextrose (Heparin Sodium/Dextrose) 25,000 units in 500 mls @ 20 mls/hr IV .Q24H JUDY; Protocol Stop: 11/02/23 13:14 Last Admin: 10/03/23 15:26 Dose: 1,000 units/hr, 20 mls/hr Documented By: Co-signed By: ASHLEY Discontinued Medications Acetaminophen (Acetaminophen 500 Mg Tab) 1,000 mg PO NOW STA Stop: 10/03/23 12:05 Last Admin: 10/03/23 12:09 Dose: 1,000 mg Documented By: EDGARDOK Aspirin (Aspirin Chew 324 Mg) 324 mg PO NOW STA Stop: 10/03/23 12:05 Last Admin: 10/03/23 12:09 Dose: 324 mg Documented By: TNK Clopidogrel Bisulfate (Clopidogrel Bisulfate 300 Mg Tab) 300 mg PO NOW STA Stop: 10/03/23 13:25 Last Admin: 10/03/23 16:45 Dose: 300 mg Documented By: Heparin Sodium (Porcine) (Heparin Sod (Porcine) 1000 Unit/Ml) 4,000 units IV NOW ONE Stop: 10/03/23 15:16 Last Admin: 10/03/23 15:48 Dose: 4,000 units Documented By: Co-signed By: ASHLEY Ioversol (Optiray 320 125ml) 119 ml IV ONCE ONE Stop: 10/03/23 13:38 Last Admin: 10/03/23 13:38 Dose: 119 ml Documented By: DERRICKK Nitroglycerin (Nitroglycerin Sl 0.4 Mg/Tab Tab) 0.4 mg SL Q5M PRN PRN Reason: Chest Pain Stop: 11/02/23 12:03 Last Admin: 10/03/23 12:10 Dose: 0.4 mg Documented By: EDGARDOK Imaging Data Radiologist's Impression: Chest X-Ray 10/03/23 12:04 XR chest 1V portable HISTORY: Chest pain, nonspecific COMPARISON: Chest 06/22/2016. FINDINGS: No pneumothorax. No pleural effusions. The cardiac silhouette remains top normal in size. No focal lung consolidations to suggest pneumonia. No evidence for pulmonary edema. No acute fractures. Stable 12 mm nodular density within left midlung zone. This may be due to the overlapping ribs. IMPRESSION: 1. No acute process within the chest. 2. Stable 12 mm nodular density within the left midlung zone. This may be due to the overlapping ribs can the long-term stability. Therefore, this is likely benign. Follow-up nonemergent chest CT should be performed for confirmation. ACT 112: Positive. There are findings on this exam that require communication between the performing entity and the patient following Patient Test Result [place] Act [place] Act 112[place] guidelines. Electronically signed by: Jose Alfredo Wiggins M.D. 10/03/2023 12:25 PM Discharge Plan Visit Data Chief Complaint: Chest Pain Stated Complaint: CHEST PAIN ED Provider: Wade Robles Discharge Problem: NSTEMI (non-ST elevated myocardial infarction), Psoriasis, CAD (coronary artery disease), Hypertensive emergency, Acute hyperglycemia Patient Disposition: Admitted As Inpatient Discharge Instructions Interventions: ED Discharge Assessment Last Done: 10/03/23 14:04 Discharge Problem: CAD (coronary artery disease) Qualifiers: Coronary Disease-Associated Artery/Lesion type: unspecified vessel or lesion type [place] vs. transplanted heart: [place] heart Associated angina: unspecified whether angina present Qualified Code(s): I25.10 - Atherosclerotic heart disease of [place] coronary artery without angina pectoris
[2023-10-03 12:03] LABS: iSTAT Creatinine 0.8 mg/dl (0.6-1.3); iSTAT Ionized Calcium 1.23 mmol/l (1.12-1.32); iSTAT Potassium 3.5 mmol/L (3.3-5.0)
[2023-10-03] MEDS: ASPIRIN CHEW 324 MG PO STA (12:09)
[2023-10-03] MEDS: ACETAMINOPHEN 500 MG TAB PO STA (12:09)
[2023-10-03] MEDS: NITROGLYCERIN SL 0.4 MG/TAB TAB SL PRN (12:10)
--- NOTE | 2023-10-03 12:28 | XRay Report ---
XR chest 1V portable HISTORY: Chest pain, nonspecific COMPARISON: Chest 06/22/2016. FINDINGS: No pneumothorax. No pleural effusions. The cardiac silhouette remains top normal in size. N o focal lung consolidations to suggest pneumonia. No evidence for pulmonary edema. No acute fractures . Stable 12 mm nodular density within left midlung zone. This may be due to the overlapping ribs. IMPRESSION: 1. No acute process within the chest. 2. Stable 12 mm nodular density within the left midlung zone. This may be due to the overlapping ribs can the long-term stability. Therefore, this is likely benign. Follow-up nonemergent chest CT should be performed for confirmation. ACT 112: Positive. There are findings on this exam that require communication between the performing entity and the patient following Patient Test Result [place] Act [place] Act 112[place] guidelines. Electronically signed by: Jose Alfredo Wiggins M.D. 10/03/2023 12:25 PM
[2023-10-03 12:29] LABS: Basophils # (auto) 0.05 K/uL (0.00-0.20); Basophils % (auto) 0.7 %; Eosinophils # (auto) 0.17 K/uL (0.00-0.50); Eosinophils % (auto) 2.4 %; Hematocrit (blood only) 47.4 % (42.0-52.0); Hemoglobin 16.3 g/dl (14.0-18.0); Immature Granulocytes # (auto) 0.01 K/uL (0.01-0.20); Immature Granulocytes % (auto) 0.1 %; Lymphocytes # (auto) 1.81 K/uL (1.20-3.40); Mean Corpuscular Hemoglobin 30.4 pg (25.0-34.0); Mean Corpuscular Hgb Conc 34.4 g/dL (32.0-36.0); Mean Corpuscular Volume 88.3 fL (80.0-100.0); Mean Platelet Volume 9.5 fL (9.4-12.4); Monocytes # (auto) 0.46 K/uL (0.11-0.59); Monocytes % (auto) 6.4 %; Neutrophils # (auto) 4.73 K/uL (1.40-6.50); Neutrophils % (auto) 65.4 %; Platelet Count 214 K/uL (130-400); RDW Coefficient of Variation 12.8 % (11.5-14.5); Red Blood Count 5.37 M/uL (4.70-6.10); White Blood Count 7.23 K/ul (4.8-10.8)
[2023-10-03 12:38] LABS: Albumin Globulin Ratio 1.5 (0.9-2); Albumin Level 4.5 gm/dl (3.4-5.0); BUN Creatinine Ratio 15.9 (10-20); Bilirubin,Total 0.8 mg/dl (0.2-1.0); Calcium 9.4 mg/dl (8.6-10.3); Creatinine Clr Calc Pharmacy 102.4 ml/min; Est GFR (African American) 106.8 ml/min; Est GFR (Non-African American) 92.1 ml/min; Potassium 3.5 mmol/L (3.5-5.1); Total Protein 7.5 gm/dl (6.0-8.3); Troponin I High Sensitivity 334.1 pg/ml (0-20)
--- NOTE | 2023-10-03 12:55 | History & Physical Report ---
Date of Service October 03, 2023 Assessment & Plan (1) NSTEMI (non-ST elevated myocardial infarction): Plan: 2 episodes of substernal chest pain with radiation to the back, neck, and arms bilaterally; similar to his past MIs Hx of MIs x 3; stents x 4 Patient reports he ran out of his Plavix last week, and has not refilled it yet Troponin elevated at 334.1, repeat pending; will trend q6h x 3 EKG on arrival revealed NSR at 65 bpm; QTc 380 Chest CTA without acute aortic dissection IV heparin drip ASA 324 and Plavix 300 given in the ED Continue Plavix 75 mg daily Will restart on aspirin 81 mg daily Metoprolol 25 mg daily Atorvastatin 80 mg daily Nitroglycerin SL as needed for chest pain Continuous telemetry monitoring Cardiology consulted A.m. CBC, BMP, mag (2) CAD (coronary artery disease): Plan: History of extensive CAD Treatment (as above) (3) HTN (hypertension): Plan: Continue amlodipine Continue valsartanHCTZ (4) Psoriasis: Plan: Patient stopped following with dermatology Topical betamethasone 0.05% BID as needed May continue home Revitadeam psoriasis cream if available Plan Disposition: Admit to PCU telemetry Full code AHA diet VTE PPx: Heparin IV History of Present Illness Chief Complaint: Chest pain Primary Care Provider: Aiden Brewer MD Anival is a 68-year-old male with PMH of HTN CAD, and 3 MIs s/p JERRICA. He presented for 2 episodes of substernal chest pain. 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 He developed chest pain while playing that lasted for approximately 20 minutes. Patient described the pain as substernal 8/10 deep achy pain, that was similar to prior episodes of MS. The pain radiated to his back, arms bilaterally, and his neck bilaterally. 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 No history of GERD. The chest pain then returned the following morning on 10/02 while the patient was sitting eating a bagel. His pain lasted for 15 minutes, and he rated it as a 5 out of 10, but he decided to come into the ED. Of note, the patient is currently out of his Plavix; he ran out last week and has not had a chance to fill it. He also notes that he did not take his amlodipine this morning as it has not been refilled. Patient was previously on aspirin, but was taken off it in May. He does have a's extensive cardiac history with 3 MIs and 4 heart stents placed. He did have a 100% blockage in May 2011. No recent change in dietary habits; he mainly eats sandwiches and bowls of soup, but reports his diet is inconsistent. He is a former tobacco cigarette smoker, but quit smoking in 2010 after his big MS. He denies recent alcohol use, or recreational drug use. He denies any recent injuries to the chest wall, but notes he does sometimes exert himself when he is lifting music equipment and is unsure if this is contributing. Of note, the patient also has extensive psoriasis on his trunk, but stopped going to the glove turner and former automatic; he was previously on Cosentyx. He has had a heparin drip prior MIs in the past without issues. No family history of bleeding disorders. Patient is hypertensive at 208/95 at time of admission; SpO2 95% on RA. ED course: Nitroglycerin 0.4 mg SL Aspirin 324 mg Acetaminophen 1000 mg IV IV heparin with bolus ROS: Patient endorses productive cough (yellow sputum), sinus cold, intermittent chest pain at rest with radiation to neck, and nausea. Patient denies fever, chills, night-sweats, new body aches, lightheadedness, dizziness, BAUTISTA, chest palpitations, SOB, pleuritic CP, abdominal pain, vomiting, diarrhea, changes in urinary/bowel habits, and blood in the urine/stool. Allergies Allergy/AdvReac Type Severity Reaction Status Date / Time labetalol Allergy Mild hallucinati Unverified 07/22/23 11:53 on Home Medications Medication Instructions Recorded Confirmed Type nitroglycerin 0.4 mg sublingual 0.4 mg sublingual Q5M PRN chest 09/23/20 10/03/23 Rx tablet (Nitrostat) pain #1 tab amlodipine 10 mg tablet 10 mg PO DAILY #90 tabs 07/19/23 10/03/23 Rx clopidogrel 75 mg tablet (Plavix) 75 mg PO DAILY #90 tabs 07/19/23 10/03/23 Rx metoprolol succinate 25 mg 25 mg PO DAILY #90 tabs 07/19/23 10/03/23 Rx tablet,extended release 24 hr Revitadeam Psoriasis Cream 1 applic topical 2XWK 07/22/23 10/03/23 History atorvastatin 80 mg tablet 80 mg PO DAILY 10/03/23 10/03/23 History valsartan 160 1 tab PO DAILY 10/03/23 10/03/23 History mg-hydrochlorothiazide 25 mg tablet Past Med/Surg History Medical History (Updated 10/03/23 @ 13:42 by Jose Alfredo Trujillo PA-C) Psoriasis Lymphadenopathy Angina pectoris Dizziness De Quervain's tenosynovitis Acute myocardial infarction Social History Smoking Status: Former smoker Tobacco Type: Cigarettes packs per day: 2; current occupational status: employed Feels Safe at Home: Yes Review of Systems Review of Systems: See HPI above Physical Exam Physical Exam: General: no acute distress; pleasant affect; non-toxic appearing; well- nourished; cooperative; 95% SpO2 on RA HEENT: normocephalic, atraumatic; no scleral icterus; PERRLA w/ EOMs intact; moist mucus membrane; vision and hearing grossly intact Neck: supple; no lymphadenopathy; trachea midline Skin: Extensive psoriasis on the trunk, with signs of excoriation; psoriasis also present on the upper mid and lower back; warm, dry without signs of tenting; no cyanosis; no bruising CV: chest wall NTP; RR, mildly bradycardic at 55 bpm; S1/S2 normal; no murmurs/rubs/gallops; pulses intact and symmetric at radial, DP, and PT Lungs: no acute respiratory distress; symmetrical chest wall expansion; clear breath sounds across all lung wolfe w/o adventitious sounds; no wheezing ABD: Soft, NTP; BS present; no rebound/guarding; no distention MSK: no tics or fasciculations; no edema noted in the LEs b/l, nonerythematous Neuro: A&Ox3; normal mood and affect; fluent speech; no focal deficits; sensation grossly intact in the LEs b/l Results & Data Results & Data Vital Signs (Past 12 Hours) Vital Signs Temp Pulse Pulse Resp BP BP Pulse Ox 10/03/23 12:14 77 10/03/23 12:07 59 L 18 95 10/03/23 11:45 58 L 18 208/95 H 95 10/03/23 11:39 61 18 96 10/03/23 11:39 10/03/23 11:39 36.6 C 61 18 221/119 H 95 O2 Del Method 10/03/23 12:14 10/03/23 12:07 Room Air 10/03/23 11:45 Room Air 10/03/23 11:39 Room Air 10/03/23 11:39 Room Air 10/03/23 11:39 Room Air Laboratory Results Abnormal lab results 10/03/23 10/03/23 Range/Units 11:42 11:48 POC Chloride 97 L (101-112) mmol/L Glucose 313 H* (70-99(Fasting)) mg/dl POC Glucose (other) 307 H (70-99) mg/dl Troponin I High Sens 334.1 H* (0-20) pg/ml Diagnostic Findings Chest X-Ray 10/03/23 12:04 XR chest 1V portable HISTORY: Chest pain, nonspecific COMPARISON: Chest 06/22/2016. FINDINGS: No pneumothorax. No pleural effusions. The cardiac silhouette remains top normal in size. No focal lung consolidations to suggest pneumonia. No evidence for pulmonary edema. No acute fractures. Stable 12 mm nodular density within left midlung zone. This may be due to the overlapping ribs. IMPRESSION: 1. No acute process within the chest. 2. Stable 12 mm nodular density within the left midlung zone. This may be due to the overlapping ribs can the long-term stability. Therefore, this is likely benign. Follow-up nonemergent chest CT should be performed for confirmation. ACT 112: Positive. There are findings on this exam that require communication between the performing entity and the patient following Patient Test Result [place] Act [place] Act 112[place] guidelines. Electronically signed by: Jose Alfredo Wiggins M.D. 10/03/2023 12:25 PM ECG Additional Comments: ECG on arrival revealed NSR at 65 bpm; QTc 380; no significant change when compared to June 2016 Repeat ECG 2 hours later revealed sinus bradycardia at 51 bpm; QTc 363; possible anterior infarct, but unconfirmed Code Status & VTE Plan Code Status Full code Supervising Physician Co-Signing Physician Notes The patient was seen by me. The chart was reviewed. Case discussed with ERICKA Pfeiffer. Agree with assessment and plan PG Care Time/CCT Total # of Minutes Spent Total Time Spent with Patient: Total time spent is greater than 50% in coordination of care (as documented) at patient's floor/unit and/or counseling patient: [place] [address] INT INP/OBS CARE 3/75MIN Patient Type New Medical Decision Making High Complexity Diagnoses NSTEMI (non-ST elevated myocardial infarction) I21.4 CAD (coronary artery disease) I25.10 HTN (hypertension) I10 Psoriasis L40.9
[2023-10-03] MEDS ORDERED: HEPARIN SOD (PORCINE) 1000 UNIT/ML IV ONE (13:02)
[2023-10-03 13:13] LABS: Partial Thromboplastin Time 29 Seconds (21-31)
[2023-10-03] MEDS: OPTIRAY 320 125ml IV ONE (13:38)
--- NOTE | 2023-10-03 13:56 | CT Scan Report ---
CHEST CTA for AORTIC DISSECTION CT DOSE: 1880.66 mGy.cm HISTORY: Chest pain radiating to back; HTN TECHNIQUE: Multiaxial CT images of the chest were performed both before and after the intravenous adm inistration of contrast to evaluate the aorta. 3D/MIP images were also obtained. Sagittal and coronal reformations were also reviewed. A dose lowering technique was utilized adhering to the principles of ALARA. COMPARISON STUDY: Chest CT 12/15/2009. FINDINGS: Noncontrast imaging through the chest shows no evidence for an intramural hematoma within t he thoracic aorta. There is mild calcified plaque within the normal caliber thoracic aorta. No eviden ce for an aortic dissection. There are severe coronary artery calcifications noted. The central pulmo nary arteries are patent. The thyroid gland enhances normally. Limited views of the upper abdomen dem onstrate normal liver, spleen, and adrenal glands. Normal esophagus. No pleural or pericardial effusi ons. No mediastinal or hilar lymphadenopathy. No acute fractures. The central airways are patent. No pneumothorax. No focal lung consolidations to suggest a pneumonia. No evidence for pulmonary edema. S uspect mild emphysema. There is a 13 x 7 mm pleural-based nodule within the superior segment of the l eft lower lobe on image 110. This corresponds to the chest x-ray abnormality. IMPRESSION: 1. No evidence for an aortic dissection. 2. A 13 x 7 mm pleural-based nodule within the superior segment left lower lobe. This corresponds to the chest x-ray abnormality. Follow-up chest CT in 6 months recommended to ensure stability. ACT 112: Positive. There are findings on this exam that require communication between the performing entity and the patient following Patient Test Result [place] Act ([place] Act 112[place] guidelines. Electronically signed by: Jose Alfredo Wiggins M.D. 10/03/2023 1:54 PM
[2023-10-03] MEDS ORDERED: ONDANSETRON INJ 2 MG/ML 2 ML VIAL IV PRN (14:43)
[2023-10-03] MEDS ORDERED: NITROGLYCERIN SL 0.4 MG/TAB TAB SL PRN (14:43)
[2023-10-03] MEDS ORDERED: ACETAMINOPHEN 325 MG TAB PO PRN (14:43)
[2023-10-03] MEDS ORDERED: [UNRECOGNIZED DRUG - OTHER] TOP SCH (14:43)
[2023-10-03] MEDS: HEPARIN SODIUM/DEXTROSE 25,000 UNITS/500 ML BAG IV SCH (15:26)
[2023-10-03] MEDS: HEPARIN SOD (PORCINE) 1000 UNIT/ML IV ONE (15:48)
[2023-10-03] MEDS: CLOPIDOGREL BISULFATE 300 MG TAB PO STA (16:45)
[2023-10-03] MEDS ORDERED: GLUCAGON FOR INJ 1 MG VIAL SQ PRN (17:04)
[2023-10-03] MEDS ORDERED: DEXTROSE 50% 50 ML SYRINGE IV PRN (17:04)
[2023-10-03] MEDS ORDERED: GLUCOSE 40% GEL 15 GM TUBE PO PRN (17:04)
[2023-10-03] MEDS ORDERED: GLUCOSE 10 TAB/TUBE PO PRN (17:04)
[2023-10-03] MEDS ORDERED: CARBOHYDRATES FOR HYPOGLYCEMIA PO PRN (17:04)
[2023-10-03 21:06] LABS: ANTI-Xa, UFH(UnfractionatedHep 0.42 IU/ml (0.3-0.7)
[2023-10-03] MEDS: INSULIN ASPART PER UNIT CHARGE SC SCH (21:31)
[2023-10-03] MEDS: BETAMETHASONE DIP AUG (DIPROLENE) 0.05% CR 15 GM TUBE EXT PRN (21:38)
[2023-10-04 04:48] LABS: Basophils # (auto) 0.05 K/uL (0.00-0.20); Basophils % (auto) 0.6 %; Eosinophils # (auto) 0.26 K/uL (0.00-0.50); Eosinophils % (auto) 3.2 %; Hematocrit (blood only) 42.8 % (42.0-52.0); Immature Granulocytes # (auto) 0.03 K/uL (0.01-0.20); Immature Granulocytes % (auto) 0.4 %; Lymphocytes # (auto) 2.35 K/uL (1.20-3.40); Lymphocytes % (auto) 29.3 %; Mean Corpuscular Hemoglobin 30.5 pg (25.0-34.0); Mean Corpuscular Volume 87.2 fL (80.0-100.0); Mean Platelet Volume 9.2 fL (9.4-12.4); Monocytes # (auto) 0.56 K/uL (0.11-0.59); Neutrophils # (auto) 4.78 K/uL (1.40-6.50); Neutrophils % (auto) 59.5 %; Platelet Count 192 K/uL (130-400); RDW Coefficient of Variation 12.8 % (11.5-14.5); RDW Standard Deviation 40.3 fL (36.4-46.3); Red Blood Count 4.91 M/uL (4.70-6.10); White Blood Count 8.03 K/ul (4.8-10.8)
[2023-10-04 05:05] LABS: BUN Creatinine Ratio 14.5 (10-20); Calcium 8.9 mg/dl (8.6-10.3); Creatinine Clr Calc Pharmacy 101.1 ml/min; Est GFR (African American) 106.3 ml/min; Est GFR (Non-African American) 91.7 ml/min; Magnesium 1.7 mg/dl (1.7-2.4); Potassium 3.4 mmol/L (3.5-5.1)
[2023-10-04 05:13] LABS: ANTI-Xa, UFH(UnfractionatedHep 0.19 IU/ml (0.3-0.7)
[2023-10-04] MEDS: HEPARIN SOD (PORCINE) 1000 UNIT/ML IV ONE (05:41)
[2023-10-04 07:24] LABS: Estimated Average Glucose 243 mg/dl; Hemoglobin A1C 10.1 % (4.5-5.6)
[2023-10-04] MEDS: Heparin IV Adult Wt-Based Low-Dose w/ INITIAL Bolus Protocol IV STA (07:28)
[2023-10-04] MEDS: VALSARTAN 80 MG TAB PO SCH (08:17)
[2023-10-04] MEDS: CLOPIDOGREL BISULFATE 75 MG TAB PO SCH (08:18)
[2023-10-04] MEDS: ATORVASTATIN 40 MG TAB PO SCH (08:18)
[2023-10-04] MEDS: amLODIPine BESYLATE 5 MG TAB PO SCH (08:18)
[2023-10-04] MEDS: ASPIRIN 81 MG ECTAB PO SCH (08:18)
[2023-10-04] MEDS: METOPROLOL SUCC 25MG EXT REL TAB PO SCH (08:18)
[2023-10-04] MEDS: hydroCHLOROthiazide 25 MG TAB PO SCH (08:18)
--- NOTE | 2023-10-04 08:41 | Electrocardiogram Report ---
Test Reason : Blood Pressure : / mmHG Vent. Rate : 065 BPM Atrial Rate : 065 BPM P-R Int : 154 ms QRS Dur : 090 ms QT Int : 366 ms P-R-T Axes : 038 -06 090 degrees QTc Int : 380 ms Normal sinus rhythm Inferior infarct , age undetermined Cannot rule out Anterior infarct , age undetermined Abnormal ECG When compared with ECG of 22-JUN-2016 09:52, Poor R wave progression is now present Confirmed by Duc Samano ([id number]) on 10/04/2023 8:41:01 AM Referred By: Confirmed By:Duc Samano
--- NOTE | 2023-10-04 08:49 | Electrocardiogram Report ---
Test Reason : Blood Pressure : / mmHG Vent. Rate : 051 BPM Atrial Rate : 051 BPM P-R Int : 172 ms QRS Dur : 086 ms QT Int : 394 ms P-R-T Axes : 039 -11 074 degrees QTc Int : 363 ms Sinus bradycardia Inferior infarct (cited on or before 03-OCT-2023) Possible Anterior infarct (cited on or before 03-OCT-2023) Abnormal ECG When compared with ECG of 03-OCT-2023 11:40, (unconfirmed) No significant change was found Confirmed by Duc Samano ([id number]) on 10/04/2023 8:49:35 AM Referred By: REFERRED SELF Confirmed By:Duc Samano
[2023-10-04] MEDS: POTASSIUM CHLORIDE CRTAB 20 MEQ TABCR PO STA (10:20)
[2023-10-04] MEDS: VALSARTAN 80 MG TAB PO ONE (10:21)
[2023-10-04] MEDS ORDERED: GLUCAGON FOR INJ 1 MG VIAL SQ PRN (10:53)
[2023-10-04] MEDS ORDERED: DEXTROSE 50% 50 ML SYRINGE IV PRN (10:53)
[2023-10-04] MEDS ORDERED: GLUCOSE 40% GEL 15 GM TUBE PO PRN (10:53)
[2023-10-04] MEDS ORDERED: CARBOHYDRATES FOR HYPOGLYCEMIA PO PRN (10:53)
[2023-10-04] MEDS ORDERED: GLUCOSE 10 TAB/TUBE PO PRN (10:53)
--- NOTE | 2023-10-04 12:18 | Cardiology Consultation ---
Date of Consultation October 04, 2023 Assessment & Plan (1) CAD (coronary artery disease): -- inferior STEMI post PCI with 2 BMS to RCA 05/2011, JERRICA to mid LAD in stent restenosis 06/2016 --residual moderate circumflex, small ostial diagonal disease --Negative SPECT for ischemia 02/2020 2. Hypertension --ARB/thiazide/BB/CCB 3. Dyslipidemia -- LDL 58 4. Psoriatic arthritis -- off methorexate. 5. New type 2 [id number] 10.1? GLP-1 candidate as an outpatient Patient with recurrent chest rest pain, mildly elevated troponin and dynamic ST changes today consistent with ACS. Presently patient chest pain-free, hemodynamically and electrically stable and no signs of heart failure. Recommend additional evaluation with cardiac catheterization via right radial artery tomorrow morning. Please keep n.p.o. past midnight. Continue heparin drip, stop on-call to [employer]. Continue DAPT with aspirin, clopidogrel. Continue home amlodipine, hydrochlorothiazide and increased valsartan. Continue current statin. Further recommendations pending findings of coronary angiography. History of Present Illness Attending Physician: Anival Feliz MD History of Present Illness Mr. West is a very pleasant 68 year old man with a history of HTN, dyslipidemia, psoriatic arthritis and multivessel CAD post inferior STEMI (PCI with BMS x 2 to proximal RCA 05/2011) and PCI to mid LAD (most recently to in- stent restenosis in the setting of angina 06/2016) admitted with recurrent chest pain, elevated HsTrop. Patient was performed with this. Wednesday night when developed acute onset chest pain that lasted for minutes and was eventually relieved with defecation. He initially attributed symptoms to GI issue but then had recurrence Wednesday morning of mild, persistent symptoms which led him to ER. HS TropI 300, peaked at 374 before trending down. Initial ECG unremarkable. Started on heparin and home meds. Chest CTA negative for dissection. Did show left lower lobe pulm onary nodule. Has been chest pain-free since admission. This morning repeat ECG showed new anterolateral T wave inversions, remained asymptomatic. Of note patient reports that has been out of some of his medications including clopidogrel, amlodipine for at least several days. Prior to that had been doing well, active, still working without chest symptoms. A1c this morning elevated at 10.1. Prior cardiovascular studies: Lexiscan SPECT 02/2020: Negative for ischemia, EF 57% Cardiac cath/PCI 06/11/2016: Mid LAD ISR with 95% stenosis, D3 80% ostial stenosis, LCx 55% mid stenosis, RCA 25% proximal ISR, PDA 30% ostial. Mid LAD PCI 3.0 x 26 mm resolute, jailed D3. Social history: . Works at [employer] in [employer]. 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 No tobacco use Allergies Allergy/AdvReac Type Severity Reaction Status Date / Time labetalol Allergy Mild hallucinati Unverified 07/22/23 11:53 on Home Medications Medication Instructions Recorded Confirmed Type nitroglycerin 0.4 mg sublingual 0.4 mg sublingual Q5M PRN chest 09/23/20 10/03/23 Rx tablet (Nitrostat) pain #1 tab amlodipine 10 mg tablet 10 mg PO DAILY #90 tabs 07/19/23 10/03/23 Rx clopidogrel 75 mg tablet (Plavix) 75 mg PO DAILY #90 tabs 07/19/23 10/03/23 Rx metoprolol succinate 25 mg 25 mg PO DAILY #90 tabs 07/19/23 10/03/23 Rx tablet,extended release 24 hr Revitadeam Psoriasis Cream 1 applic topical 2XWK 07/22/23 10/03/23 History atorvastatin 80 mg tablet 80 mg PO DAILY 10/03/23 10/03/23 History valsartan 160 1 tab PO DAILY 10/03/23 10/03/23 History mg-hydrochlorothiazide 25 mg tablet Patient History Medical History Psoriasis Lymphadenopathy Angina pectoris Dizziness De Quervain's tenosynovitis Acute myocardial infarction Social History Smoking Status: Former smoker Tobacco Type: Cigarettes packs per day: 2; Smoking End Date: 05/2011; Hx Alcohol Use: No Preferred Language: Macedonian Communication Ability: Effective Central [employer] Required: Yes Beliefs That Will Affect Care: None current occupational status: employed Other Information That Helps Us Care for You: No Feels Safe at Home: Yes Safety Concerns: Feels Safe At This Time Assistive Devices: None Review of Systems Review of Systems: All systems reviewed & are unremarkable except as noted in HPI & below Physical Exam Physical Exam: General: Comfortable HEENT: Sclerae anicteric Lungs: Clear to auscultation bilaterally Cardiac: Regular rate and rhythm, no murmurs. Vascular: 2+ radial Abdomen: Soft, nontender Extremities: Well perfused, no peripheral edema Neuro: Nonfocal Psych: Alert orient x3, normal affect and mood Skin: Psoriatic plaques on back Results & Data Vital Signs (Past 12 Hours) Vital Signs Temp Pulse Resp BP Pulse Ox O2 Del Method 10/04/23 08:12 97.7 F 70 18 158/84 H 92 Room Air 10/04/23 03:00 97.7 F 55 L 16 160/85 H 93 Room Air PG Care Time/CCT Total # of Minutes Spent Total Time Spent with Patient: Total time spent is greater than 50% in coordination of care (as documented) at patient's floor/unit and/or counseling patient: Coding Level of Care Code 60490 IN/OBS CONSULT LVL 4,60M Diagnoses CAD (coronary artery disease) I25.10 Associated angina: unspecified whether angina present Coronary Disease-Associated Artery/Lesion type: unspecified vessel or lesion type [place] vs. transplanted heart: [place] heart (1) CAD (coronary artery disease) Associated angina: unspecified whether angina present Coronary Disease- Associated Artery/Lesion type: unspecified vessel or lesion type [place] vs. transplanted heart: [place] heart Qualified Code(s): I25.10 - Atherosclerotic heart disease of [place] coronary artery without angina pectoris
--- NOTE | 2023-10-04 13:02 | Hospitalist Progress Note ---
Date of Service October 04, 2023 Assessment & Plan (1) NSTEMI (non-ST elevated myocardial infarction): Plan: Currently on heparin drip. Continue current medical management. Fortunately, he has not had any recurrent chest pain. However, his second EKG reveals dynamic changes with anterior T wave inversions now evident. Appreciate cardiology consultation and recommendations. He will undergo left heart catheterization tomorrow, October 04. (2) CAD (coronary artery disease): Plan: History of extensive CAD and PCI procedures. Continue current medical management. (3) HTN (hypertension): Plan: Valsartan dosage uptitrated today, October 03. Continue amlodipine. Hydrochlorothiazide is on hold (4) Type 2 diabetes mellitus: Plan: Elevated glucose and hemoglobin A1c on admission. He is now on an ADA diet and sliding scale coverage. He will be started on metformin after his heart catheterization is completed. (5) Psoriasis: Plan: Patient stopped following with dermatology. He is using topical betamethasone 0.05% BID as needed. Plan To be determined. Will await heart cath results. Admission and Anticipated Discharge Date Admission Date: October 03, 2023 Subjective Alert and oriented. Valsartan dosage uptitrated today, October 03, for better blood pressure control. He appears to have a new diagnosis of type 2 diabetes. ADA diet added along with sliding scale coverage. Will hold off on addition of metformin since he is going to have a heart catheterization this admission. Cardiology consultation and recommendations appreciated. He remains on a heparin drip. He will undergo left heart catheterization tomorrow, October 04. Review of Systems 2 Review of Systems: Constitutional-no fever or chills ENT-no blurred vision, no double vision, no epistaxis, no sore throat Respiratory-no cough, no wheezing, no shortness of breath Cardiac-no palpitations, no chest pain, no syncope GI-no nausea, vomiting, diarrhea, melena, hematochezia -no urinary retention, no urinary incontinence, no dysuria, no hematuria Musculoskeletal-no joint pain, no muscle tenderness Skin-no bruising, no rashes, no pruritus Neuro-no isolated weakness, no paresthesia Psych-no depression, no anxiety Physical Exam 2 Physical Exam: General-alert and oriented x3, no fever, no chills HEENT-head atraumatic and normocephalic, pupils equal and reactive to light, extraocular muscles intact Neck-no lymphadenopathy or thyromegaly, trachea midline Chest-clear to auscultation. No rales, wheezing or rhonchi Cardiac-regular rate and rhythm, normal S1 and S2 Abdomen-normal bowel sounds, no hepatosplenomegaly Extremities-no cyanosis, clubbing, or edema Neuro-cranial nerves II through XII intact, motor and sensory function within normal limits, strength symmetrical, no focal deficits Psych-normal affect, normal mood Results & Data Results & Data Vital Signs (Past 12 Hours) Vital Signs Temp Pulse Resp BP Pulse Ox O2 Del Method 10/04/23 12:26 36.6 C 72 20 168/82 H 92 Room Air 10/04/23 08:12 36.5 C 70 18 158/84 H 92 Room Air 10/04/23 03:00 36.5 C 55 L 16 160/85 H 93 Room Air Laboratory Results 10/04/23 04:10 10/04/23 04:10 PG Care Time/CCT Total # of Minutes Spent Total Time Spent with Patient: Total time spent is greater than 50% in coordination of care (as documented) at patient's floor/unit and/or counseling patient: Coding Level of Care Code 73792 SUB INP/OBS CARE 3/50MIN Diagnoses NSTEMI (non-ST elevated myocardial infarction) I21.4 CAD (coronary artery disease) I25.10 Associated angina: unspecified whether angina present Coronary Disease-Associated Artery/Lesion type: unspecified vessel or lesion type [place] vs. transplanted heart: [place] heart HTN (hypertension) I10 Type 2 diabetes mellitus E11.9 Psoriasis L40.9 (2) CAD (coronary artery disease) Associated angina: unspecified whether angina present Coronary Disease- Associated Artery/Lesion type: unspecified vessel or lesion type [place] vs. transplanted heart: [place] heart Qualified Code(s): I25.10 - Atherosclerotic heart disease of [place] coronary artery without angina pectoris
[2023-10-04] MEDS: INSULIN ASPART PER UNIT CHARGE SC SCH (13:10)
--- NOTE | 2023-10-04 13:19 | Electrocardiogram Report ---
Test Reason : Blood Pressure : / mmHG Vent. Rate : 066 BPM Atrial Rate : 066 BPM P-R Int : 164 ms QRS Dur : 080 ms QT Int : 402 ms P-R-T Axes : 057 037 100 degrees QTc Int : 421 ms Normal sinus rhythm T wave abnormality, consider anterolateral ischemia Abnormal ECG When compared with ECG of 03-OCT-2023 13:30, Borderline criteria for Anterior infarct are no longer Present T wave inversion now evident in Anterolateral leads QT has lengthened Confirmed by Duc Samano ([id number]) on 10/04/2023 1:18:39 PM Referred By: REFERRED SELF Confirmed By:Duc Samano
--- NOTE | 2023-10-04 23:27 | XCELERA ---
[id number] \\[id number]
[2023-10-05 06:25] LABS: Basophils # (auto) 0.06 K/uL (0.00-0.20); Basophils % (auto) 0.8 %; Eosinophils # (auto) 0.27 K/uL (0.00-0.50); Eosinophils % (auto) 3.5 %; Hematocrit (blood only) 45.9 % (42.0-52.0); Hemoglobin 15.8 g/dl (14.0-18.0); Immature Granulocytes # (auto) 0.01 K/uL (0.01-0.20); Immature Granulocytes % (auto) 0.1 %; Lymphocytes # (auto) 2.16 K/uL (1.20-3.40); Lymphocytes % (auto) 28.2 %; Mean Corpuscular Hemoglobin 30.2 pg (25.0-34.0); Mean Corpuscular Hgb Conc 34.4 g/dL (32.0-36.0); Mean Corpuscular Volume 87.6 fL (80.0-100.0); Mean Platelet Volume 9.2 fL (9.4-12.4); Monocytes # (auto) 0.54 K/uL (0.11-0.59); Neutrophils # (auto) 4.62 K/uL (1.40-6.50); Neutrophils % (auto) 60.4 %; Platelet Count 182 K/uL (130-400); RDW Coefficient of Variation 12.8 % (11.5-14.5); RDW Standard Deviation 40.5 fL (36.4-46.3); Red Blood Count 5.24 M/uL (4.70-6.10); White Blood Count 7.66 K/ul (4.8-10.8)
[2023-10-05 06:49] LABS: Creatinine Clr Calc Pharmacy 109.5 ml/min; Est GFR (African American) 110.8 ml/min; Est GFR (Non-African American) 95.6 ml/min; Potassium 3.4 mmol/L (3.5-5.1)
[2023-10-05 07:11] LABS: ANTI-Xa, UFH(UnfractionatedHep 0.23 IU/ml (0.3-0.7)
--- NOTE | 2023-10-05 07:15 | Pre Anesthesia Assessment ---
Date of Service October 05, 2023 Pre Sedation Assessment Vital Signs Temp Pulse Pulse Resp BP BP Pulse Ox 10/05/23 06:55 60 18 166/71 H 93 10/05/23 03:06 97.7 F 62 18 131/72 94 10/04/23 23:03 97.7 F 85 18 138/77 95 10/04/23 21:59 58 L 10/04/23 21:00 10/04/23 19:59 97.7 F 62 18 160/72 H 93 10/04/23 16:10 97.7 F 64 20 154/79 H 91 10/04/23 12:26 97.9 F 72 20 168/82 H 92 10/04/23 08:12 97.7 F 70 18 158/84 H 92 O2 Del Method 10/05/23 06:55 Room Air 10/05/23 03:06 Room Air 10/04/23 23:03 Room Air 10/04/23 21:59 10/04/23 21:00 Room Air 10/04/23 19:59 Room Air 10/04/23 16:10 Room Air 10/04/23 12:26 Room Air 10/04/23 08:12 Room Air Cardiovascular + regular rate Respiratory + respiratory effort normal Pre-Sedation Airway Assessment Smoking Status: Former smoker Hx Sleep Apnea: No Hx Difficult Intubation: No Short, Thick Neck: No Thyromental Distance: > or= 3.5 Finger Breadths Oral Cavity: + Dentures Mallampati Class: III ASA: ASA3 NPO Status Date of Last Intake of Fluids: 10/05/23 Time of Last Intake of Fluids: 06:57 Date of Last Intake of Solid Food: 10/04/23 Time of Last Intake of Solid Foods: 18:30 Procedure Planning Contraindications for Sedation: none Current Medications Reviewed: Yes Notes The planned sedation has been discussed with the patient. Informed Consent was obtained. I have identified the patient, determined the appropriateness of sedation and have assessed the patient immediately prior to the procedure. All medicine(s) and interventions are by my order.
--- NOTE | 2023-10-05 08:12 | Post Anesthesia Assessment ---
Date of Service October 05, 2023 Post Sedation Assessment Vital Signs Temp Pulse Pulse Resp BP BP Pulse Ox 10/05/23 06:55 60 18 166/71 H 93 10/05/23 03:06 97.7 F 62 18 131/72 94 10/04/23 23:03 97.7 F 85 18 138/77 95 10/04/23 21:59 58 L 10/04/23 21:00 10/04/23 19:59 97.7 F 62 18 160/72 H 93 10/04/23 16:10 97.7 F 64 20 154/79 H 91 10/04/23 12:26 97.9 F 72 20 168/82 H 92 10/04/23 08:12 97.7 F 70 18 158/84 H 92 O2 Del Method 10/05/23 06:55 Room Air 10/05/23 03:06 Room Air 10/04/23 23:03 Room Air 10/04/23 21:59 10/04/23 21:00 Room Air 10/04/23 19:59 Room Air 10/04/23 16:10 Room Air 10/04/23 12:26 Room Air 10/04/23 08:12 Room Air Recovery Score Activity: Moves 4 extremities Respiration: Deep Breath/Cough Circulation: +/-20% PreAnes Value Consciousness: Fully Awake Oxygen Saturation: O2 needed for >90% Discharge Sedation Level of Care: Fast Track Phase II Post Sedation Plan On clinical assessment, the patient appears to have tolerated the sedation without complications. Patient is recovering as anticipated. Patient will continue to be monitored by nursing and may be discharged when sedation discharge criteria are met per below protocol. Upon Completions of procedure up to 15 minutes continue every 5 minute vital signs and the P.A.R. score; then discharge to a Phase I or Fast Track to Phase II per the following guidelines: * Discharge Patient to appropriate Phase II area if PAR is 8 or greater or return to pre- procedure baseline. The post - procedure orders will be as directed. * If PAR score is less than 8 or not return to pre-procedure baseline then patient will follow Phase I monitoring till PAR is reached for Phase II. The Phase I may be done in procedure room or may call to secure a Phase I area. * If naloxone or flumazenil are used for reversal, hold in Phase I for continued monitoring from when last reversal dose was given for a minimum of 60 minutes or longer pending the nurse and/or physician discretion of patient condition before discharge to Phase II. Please call the Sedation Physician to re-evaluate and complete post-note for discharge to Phase II area. Do NOT discharge from procedure sedation or Phase 1 until post- sedation evaluation note is complete by procedure /sedation MD Sedation Discharge Instructions to be given to the patient at discharge to home.
[2023-10-05] MEDS: HEPARIN (PORCINE) 1000 UNIT/ML 10 ML (CATH LAB USE ONLY) ONE (08:13)
[2023-10-05] MEDS: fentaNYL citrate PF 100 MCG/2 ML VIAL ONE (08:13)
[2023-10-05] MEDS: MIDAZOLAM HCL 1 MG/ML 2ML VIAL ONE (08:14)
[2023-10-05] MEDS: niCARdipine HCL INJ 2.5 MG/ML 10 ML AMP ONE (08:14)
[2023-10-05] MEDS: NITROGLYCERIN/D5W 100MCG/ML 20ML SYR ONE (08:15)
[2023-10-05] MEDS: OPTIRAY 350 ONE ×2 (08:15→09:19)
[2023-10-05] MEDS: CLOPIDOGREL BISULFATE 300 MG TAB ONE (08:16)
[2023-10-05] MEDS: diphenhydrAMINE 50 MG/ML VIAL ONE (08:16)
--- NOTE | 2023-10-05 08:16 | Cardiac Catheterization ---
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 Clinical evaluation leading to the procedure CAD Presenation: Non STEMI Anginal Classification: CCS IV Heart Failure: No Diagnostic Physicians Name: Aiden Whitmore MD Closure Device Recommendations: Medical Therapy and/or Counseling Cardiac Cath Procedure Full Procedure Date October 05, 2023 Pre-Procedure Diagnosis Pre-Procedure Diagnosis: Non STEMI AUC Score AUC Score: 8 Post-Procedure Diagnosis Post-Procedure Diagnosis: Severe CAD, Successful PCI and Normal Intracardiac Pressures Procedure(s) Performed Procedure(s) Performed: Coronary Angiography, Left Heart Cath, Drug Eluting Stent and IVUS Occ Therapy Asst Aiden Whitmore MD Facing End Trimmer(s) Deibler Estimated Blood Loss Estimated Blood Loss: 15 Medication(s) Medication(s): Clopidogrel, Fentanyl, Heparin, Lidocaine 1%, Nicardipine, Nitroglycerin and Versed Summary of Findings Indication: NSTEMI. History of coronary disease post prior PCI with 2 BMS to RCA and 2 JERRICA to LAD Access: 6 Fr right radial artery Catheters: [place], EBU 3.5 guide Findings: LM -normal caliber, no significant disease LAD -large caliber, mid segment stents patent with in-stent restenosis at distal aspect of stents up to 90% at distal edge. Remainder of LAD without significant disease and wraps around apex. Large first diagonal without significant disease. Jailed small second diagonal with 90% ostial stenosis. Circumflex -small to medium caliber, 60 to 70% mid segment stenosis RCA -dominant, large caliber vessel, mid segment stents patent with 30% in-stent restenosis ectatic just distal to stents. Distal vessel with luminal irregular ities. RPDA without significant disease. LVEDP -7 -- PCI -- Antithrombotic therapy: Heparin, clopidogrel Procedure: Left main cannulated with EBU 3.5 guide Pre-procedure flow JENNA 3 BMW wire passed across lesion into distal vessel Mid LAD lesion predilated with 2.5 compliant balloon [employer] IVUS catheter placed to distal LAD. Pullback revealed atherosclerotic disease at distal edge of stent. Distal portion of prior stent appeared underexpanded without significant in-stent restenosis. Proximal LAD calcified. No significant left main disease Mid LAD stents postdilated with 3.5 NC Mid LAD stented with 2.75 x 15 mm Xience drug-eluting stent overlapping distal aspect of prior stents. Stents post-dilated with 3.5 noncompliant balloon IC vasodilators administered for spasm Post procedure JENNA 3 flow, stents well expanded with minimal residual stenosis and no apparent cardiac complications. Arterial Closure: TR band Summary: 1. Multivessel coronary artery disease Mid LAD in-stent restenosis up to 90% at distal aspect of prior stent 60 to 70% mid small circumflex (stable from 2017) Patent mid RCA stents with 30% in-stent restenosis 2. Normal intracardiac filling pressure 3. Successful PCI of mid LAD with single drug-eluting stent (2.75 x 15 mm Xience) overlapping distal aspect of prior stents. Stents postdilated with 3.5 NC. Recommendations: To PCU for continued monitoring Reloaded with additional 300 mg of clopidogrel Continue extended DAPT Continue statin, and ASCVD risk factor modification Consult cardiac Rehab Hemodynamics Rest Ao:: 104/61/92 Final Ao: 146/74/107 LV: 121/7 Recommendations Recommendations: Medical Therapy and/or Counseling Radiation Exposure (mGy) 2294 Contrast (mls) 125 Anesthesia moderate [id number] Procedural Complication(s) None Disposition PCU I attest to the content of the Intraoperative Record and any orders documented therein. Any exceptions are noted below. CogitoG Card Cath Procedure Codes Cardiac Catheterization Procedure 1: Cardiovascular Cath Procedures: 09101 Coronaries and LHC (+/-LV) Therapeutic Services & Ancillary Procedure 1: Cardiovascular Tx and Anc Procedures: 24055 IV Ultrasound (Coronary or Graft) Moderate Sedation Procedure 1: Sedation/Anesthesia: 60259 Mod Sedation by the same physician;Init15 Min Child Age 5 & Up Procedure 2: Sedation/Anesthesia: 52400 Mod Sedation by the same physician; Ea [id number] Minutes Stenting Procedure 1: Cardiovascular Stent Procedures: 14753 Perc transcatheter placement of intracoronary stent(s), with ang PG Care Time/CCT Total # of Minutes Spent Total Time Spent with Patient: Total time spent is greater than 50% in coordination of care (as documented) at patient's floor/unit and/or counseling patient:
--- NOTE | 2023-10-05 08:52 | Cardiology Progress Note ---
Date of Service October 05, 2023 Assessment & Plan (1) CAD (coronary artery disease): Plan: -- inferior STEMI post PCI with 2 BMS to RCA 05/2011, JERRICA to mid LAD in stent restenosis 06/2016 --residual moderate circumflex, small ostial diagonal disease --Negative SPECT for ischemia 02/2020 2. Hypertension --ARB/thiazide/BB/CCB 3. Dyslipidemia -- LDL 58 4. Psoriatic arthritis -- off methorexate. 5. New type 2 [id number] 10.1? GLP-1 candidate as an outpatient Patient underwent PCI of mid LAD in-stent restenosis this morning. Remaining coronary arteries largely unchanged from 2017 Post procedure with mild, resolving chest pain likely secondary to jailed diagonal. Can stop heparin drip Continue extended DAPT with aspirin, clopidogrel Continue home amlodipine, hydrochlorothiazide and increased valsartan. Continue current statin From cardiac standpoint likely home tomorrow. Follow-up with me in 1 to 2 weeks. Admission and Anticipated Discharge Date Admission Date: October 03, 2023 Subjective No chest pain overnight. Underwent PCI this morning. Mild resolving chest pain post procedure secondary to pinched jailed diagonal. Review of Systems Review of Systems: All systems reviewed & are unremarkable except as noted in Subjective Physical Exam Physical Exam: General: Comfortable HEENT: Sclerae anicteric Lungs: Clear to auscultation bilaterally Cardiac: Regular rate and rhythm, no murmurs. Vascular: TR band in place Abdomen: Soft, nontender Extremities: Well perfused, no peripheral edema Neuro: Nonfocal Psych: Alert orient x3, normal affect and mood Skin: Psoriatic plaques on back Results & Data Vital Signs (Past 12 Hours) Vital Signs Temp Pulse Pulse Resp BP BP Pulse Ox 10/05/23 08:30 98.2 F 60 18 168/83 H 93 10/05/23 08:15 98.2 F 62 18 172/82 H 92 10/05/23 06:55 60 18 166/71 H 93 10/05/23 03:06 97.7 F 62 18 131/72 94 10/04/23 23:03 97.7 F 85 18 138/77 95 10/04/23 21:59 58 L 10/04/23 21:00 O2 Del Method 10/05/23 08:30 Room Air 10/05/23 08:15 Room Air 10/05/23 06:55 Room Air 10/05/23 03:06 Room Air 10/04/23 23:03 Room Air 10/04/23 21:59 10/04/23 21:00 Room Air PG Care Time/CCT Total # of Minutes Spent Total Time Spent with Patient: Total time spent is greater than 50% in coordination of care (as documented) at patient's floor/unit and/or counseling patient: Coding Level of Care Code 87395 SUB INP/OBS CARE 3/50MIN Diagnoses CAD (coronary artery disease) I25.10 Associated angina: unspecified whether angina present Coronary Disease-Associated Artery/Lesion type: unspecified vessel or lesion type [place] vs. transplanted heart: [place] heart (1) CAD (coronary artery disease) Associated angina: unspecified whether angina present Coronary Disease- Associated Artery/Lesion type: unspecified vessel or lesion type [place] vs. transplanted heart: [place] heart Qualified Code(s): I25.10 - Atherosclerotic heart disease of [place] coronary artery without angina pectoris
[2023-10-05] MEDS: SODIUM CHLORIDE 0.9% 1,000 ML IV SCH (09:53)
[2023-10-05] MEDS: VALSARTAN 80 MG TAB PO SCH (10:29)
[2023-10-05] MEDS: POTASSIUM CHLORIDE CRTAB 20 MEQ TABCR PO ONE (13:37)
--- NOTE | 2023-10-05 14:00 | Hospitalist Progress Note ---
Date of Service October 05, 2023 Assessment & Plan (1) NSTEMI (non-ST elevated myocardial infarction): Plan: He underwent left heart catheterization earlier this morning, October 04, and had angioplasty of an in-stent LAD stenosis. Heparin drip has subsequently been discontinued. Cardiology entry noted. Hopefully he can go home tomorrow, October 05. No recurrent chest pain. Appreciate cardiology consultation and recommendations. (2) CAD (coronary artery disease): Plan: History of extensive CAD and PCI procedures. Continue current medical management. (3) HTN (hypertension): Plan: Valsartan dosage uptitrated on October 03. Continue amlodipine. Hydrochlorothiazide is on hold (4) Type 2 diabetes mellitus: Plan: Elevated glucose and hemoglobin A1c on admission. He is now on an ADA diet and sliding scale coverage. He will be started on metformin at discharge. A prescription for home glucose monitor and supplies was given to the patient (5) Psoriasis: Plan: Patient stopped following with dermatology. He is using topical betamethasone 0.05% BID as needed. Plan Hopeful discharge to home tomorrow, October 05 Admission and Anticipated Discharge Date Admission Date: October 03, 2023 Subjective Alert and oriented. No complaints. He underwent left heart catheterization earlier this morning, October 04, and had angioplasty of an in-stent LAD restenosis. Cardiology entry noted. Hopefully he can be discharged to home tomorrow, October 04. Potassium again mildly low at 3.4. Oral potassium supplement has again been administered. Heparin drip has been discontinued. Valsartan was uptitrated yesterday, October 03. Review of Systems 2 Review of Systems: Constitutional-no fever or chills ENT-no blurred vision, no double vision, no epistaxis, no sore throat Respiratory-no cough, no wheezing, no shortness of breath Cardiac-no palpitations, no chest pain, no syncope GI-no nausea, vomiting, diarrhea, melena, hematochezia -no urinary retention, no urinary incontinence, no dysuria, no hematuria Musculoskeletal-no joint pain, no muscle tenderness Skin-no bruising, no rashes, no pruritus Neuro-no isolated weakness, no paresthesia Psych-no depression, no anxiety Physical Exam 2 Physical Exam: General-alert and oriented x3, no fever, no chills HEENT-head atraumatic and normocephalic, pupils equal and reactive to light, extraocular muscles intact Neck-no lymphadenopathy or thyromegaly, trachea midline Chest-clear to auscultation. No rales, wheezing or rhonchi Cardiac-regular rate and rhythm, normal S1 and S2 Abdomen-normal bowel sounds, no hepatosplenomegaly Extremities-no cyanosis, clubbing, or edema Neuro-cranial nerves II through XII intact, motor and sensory function within normal limits, strength symmetrical, no focal deficits Psych-normal affect, normal mood Results & Data Results & Data Vital Signs (Past 12 Hours) Vital Signs Temp Pulse Resp BP BP Pulse Ox O2 Del Method 10/05/23 12:36 36.4 C L 74 18 176/72 H 92 Room Air 10/05/23 09:28 36.4 C L 53 L 18 172/85 H 90 Room Air 10/05/23 08:49 36.4 C L 59 L 20 173/88 H 93 Room Air 10/05/23 08:30 36.8 C 60 18 168/83 H 93 Room Air 10/05/23 08:15 36.8 C 62 18 172/82 H 92 Room Air 10/05/23 06:55 60 18 166/71 H 93 Room Air 10/05/23 03:06 36.5 C 62 18 131/72 94 Room Air Laboratory Results 10/05/23 06:03 10/05/23 06:03 PG Care Time/CCT Total # of Minutes Spent Total Time Spent with Patient: Total time spent is greater than 50% in coordination of care (as documented) at patient's floor/unit and/or counseling patient: Coding Level of Care Code 97628 SUB INP/OBS CARE 3/50MIN Diagnoses NSTEMI (non-ST elevated myocardial infarction) I21.4 CAD (coronary artery disease) I25.10 Associated angina: unspecified whether angina present Coronary Disease-Associated Artery/Lesion type: unspecified vessel or lesion type [place] vs. transplanted heart: [place] heart HTN (hypertension) I10 Type 2 diabetes mellitus E11.9 Psoriasis L40.9 (2) CAD (coronary artery disease) Associated angina: unspecified whether angina present Coronary Disease- Associated Artery/Lesion type: unspecified vessel or lesion type [place] vs. transplanted heart: [place] heart Qualified Code(s): I25.10 - Atherosclerotic heart disease of [place] coronary artery without angina pectoris
--- NOTE | 2023-10-05 16:00 | Electrocardiogram Report ---
Test Reason : Blood Pressure : / mmHG Vent. Rate : 056 BPM Atrial Rate : 056 BPM P-R Int : 174 ms QRS Dur : 090 ms QT Int : 440 ms P-R-T Axes : 056 000 085 degrees QTc Int : 424 ms Sinus bradycardia T wave abnormality, consider anterolateral ischemia Abnormal ECG When compared with ECG of 04-OCT-2023 10:20, No significant change was found Confirmed by Duc Samano ([id number]) on 10/05/2023 3:59:38 PM Referred By: REFERRED SELF Confirmed By:Duc Samano
[2023-10-06 06:48] LABS: BUN Creatinine Ratio 19.8 (10-20); Calcium 9.2 mg/dl (8.6-10.3); Creatinine Clr Calc Pharmacy 101.3 ml/min; Est GFR (African American) 107.3 ml/min; Est GFR (Non-African American) 92.6 ml/min; Potassium 3.8 mmol/L (3.5-5.1)
[2023-10-06 08:03] LABS: Basophils # (auto) 0.07 K/uL (0.00-0.20); Basophils % (auto) 0.7 %; Eosinophils # (auto) 0.27 K/uL (0.00-0.50); Eosinophils % (auto) 2.8 %; Hematocrit (blood only) 49.6 % (42.0-52.0); Immature Granulocytes # (auto) 0.05 K/uL (0.01-0.20); Immature Granulocytes % (auto) 0.5 %; Lymphocytes # (auto) 1.92 K/uL (1.20-3.40); Lymphocytes % (auto) 20.2 %; Mean Corpuscular Hemoglobin 30.1 pg (25.0-34.0); Mean Corpuscular Hgb Conc 34.3 g/dL (32.0-36.0); Mean Corpuscular Volume 87.9 fL (80.0-100.0); Mean Platelet Volume 9.3 fL (9.4-12.4); Monocytes # (auto) 0.65 K/uL (0.11-0.59); Monocytes % (auto) 6.8 %; Neutrophils # (auto) 6.55 K/uL (1.40-6.50); Platelet Count 236 K/uL (130-400); RDW Coefficient of Variation 12.9 % (11.5-14.5); RDW Standard Deviation 41.2 fL (36.4-46.3); Red Blood Count 5.64 M/uL (4.70-6.10); White Blood Count 9.51 K/ul (4.8-10.8)
--- NOTE | 2023-10-06 08:32 | Cardiology Progress Note ---
Date of Service October 06, 2023 Assessment & Plan (1) CAD (coronary artery disease): Plan: -- inferior STEMI post PCI with 2 BMS to RCA 05/2011 -- JERRICA to mid LAD in stent restenosis 06/2016 -- JERRICA to late-mid LAD disease 09/2023 --residual moderate circumflex, small ostial diagonal disease 2. Hypertension --ARB/thiazide/BB/CCB 3. Dyslipidemia -- LDL 58 4. Psoriatic arthritis -- off methorexate. 5. New type 2 [id number] 10.1? GLP-1 candidate as an outpatient Chest pain free. Hemodynamically and electrically stable. No access site complications. From a cardiac standpoint OK with discharge today. Home on: intermediate accountant DAPT with aspirin, clopidogrel Continue home amlodipine, hydrochlorothiazide and increased valsartan. Continue current statin -- Metformin per Dr. Feliz Follow-up with me in 1 to 2 weeks. Will talk about GLP1 and cardiac rehab. Admission and Anticipated Discharge Date Admission Date: October 03, 2023 Subjective Feeling well. No additional chest pain. No other new concerns. Telemetry reviewed -- no events. Review of Systems Review of Systems: All systems reviewed & are unremarkable except as noted in HPI & below Physical Exam Physical Exam: General: Comfortable HEENT: Sclerae anicteric Lungs: Clear to auscultation bilaterally Cardiac: Regular rate and rhythm, no murmurs. Vascular: RT radial artery 2+ pulse, no hematoma Abdomen: Soft, nontender Extremities: Well perfused, no peripheral edema Neuro: Nonfocal Psych: Alert orient x3, normal affect and mood Skin: Psoriatic plaques on back Results & Data Vital Signs (Past 12 Hours) Vital Signs Temp Pulse Pulse Resp BP BP Pulse Ox 10/06/23 08:09 71 10/06/23 08:07 97.3 F L 63 18 144/75 H 93 10/06/23 02:54 97.7 F 69 18 137/79 93 10/05/23 23:26 97.9 F 70 18 129/74 94 10/05/23 23:00 67 O2 Del Method 10/06/23 08:09 10/06/23 08:07 Room Air 10/06/23 02:54 Room Air 10/05/23 23:26 Room Air 10/05/23 23:00 PG Care Time/CCT Total # of Minutes Spent Total Time Spent with Patient: Total time spent is greater than 50% in coordination of care (as documented) at patient's floor/unit and/or counseling patient: Coding Level of Care Code 44262 SUB INP/OBS CARE 350MIN Diagnoses CAD (coronary artery disease) I25.10 Associated angina: unspecified whether angina present Coronary Disease-Associated Artery/Lesion type: unspecified vessel or lesion type [place] vs. transplanted heart: [place] heart (1) CAD (coronary artery disease) Associated angina: unspecified whether angina present Coronary Disease- Associated Artery/Lesion type: unspecified vessel or lesion type [place] vs. transplanted heart: [place] heart Qualified Code(s): I25.10 - Atherosclerotic heart disease of [place] coronary artery without angina pectoris
--- NOTE | 2023-10-06 11:17 | Discharge Summary ---
Date of Service October 06, 2023 Admission HPI Per Admitting Provider Anival is a 68-year-old male with PMH of HTN CAD, and 3 MIs s/p JERRICA. He presented for 2 episodes of substernal chest pain. 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 He developed chest pain while playing that lasted for approximately 20 minutes. Patient described the pain as substernal 8/10 deep achy pain, that was similar to prior episodes of PA. The pain radiated to his back, arms bilaterally, and his neck bilaterally. He stopped playing guiWantoor and went to have a bowel movement, which alleviated his pain, he thought it might be reflux or gas. No history of GERD. The chest pain then returned the following morning on 10/02 while the patient was sitting eating a bagel. His pain lasted for 15 minutes, and he rated it as a 5 out of 10, but he decided to come into the ED. Of note, the patient is currently out of his Plavix; he ran out last week and has not had a chance to fill it. He also notes that he did not take his amlodipine this morning as it has not been refilled. Patient was previously on aspirin, but was taken off it in May. He does have a's extensive cardiac history with 3 MIs and 4 heart stents placed. He did have a 100% blockage in May 2011. No recent change in dietary habits; he mainly eats sandwiches and bowls of soup, but reports his diet is inconsistent. He is a former tobacco cigarette smoker, but quit smoking in 2010 after his big PA. He denies recent alcohol use, or recreational drug use. He denies any recent injuries to the chest wall, but notes he does sometimes exert himself when he is lifting music equipment and is unsure if this is contributing. Of note, the patient also has extensive psoriasis on his trunk, but stopped going to the tripe cooker; he was previously on Cosentyx. He has had a heparin drip prior MIs in the past without issues. No family history of bleeding disorders. Patient is hypertensive at 208/95 at time of admission; SpO2 95% on RA. ED course: Nitroglycerin 0.4 mg SL Aspirin 324 mg Acetaminophen 1000 mg IV IV heparin with bolus ROS: Patient endorses productive cough (yellow sputum), sinus cold, intermittent chest pain at rest with radiation to neck, and nausea. Patient denies fever, chills, night-sweats, new body aches, lightheadedness, dizziness, BAUTISTA, chest palpitations, SOB, pleuritic CP, abdominal pain, vomiting, diarrhea, changes in urinary/bowel habits, and blood in the urine/stool. Principal Diagnosis Non-ST elevation PA, new onset type 2 diabetes, uncontrolled hypertension Discharge Exam General-alert and oriented x3, no fever, no chills HEENT-head atraumatic and normocephalic, pupils equal and reactive to light, extraocular muscles intact Neck-no lymphadenopathy or thyromegaly, trachea midline Chest-clear to auscultation. No rales, wheezing or rhonchi Cardiac-regular rate and rhythm, normal S1 and S2 Abdomen-normal bowel sounds, no hepatosplenomegaly Extremities-no cyanosis, clubbing, or edema Neuro-cranial nerves II through XII intact, motor and sensory function within normal limits, strength symmetrical, no focal deficits Psych-normal affect, normal mood Discharge Data Allergies Allergy/AdvReac Type Severity Reaction Status Date / Time labetalol Allergy Mild hallucinati Unverified 07/22/23 11:53 on Consultations 10/03/23 12:57 ED Decision to Admit Stat 10/03/23 13:24 Consult Cardiology Routine Procedures Performed Operation Date: 10/05/23 07:00 Actual Procedures p Cineradiography w/Routine Exam - Aiden Whitmore MD s IVUS Coronary Single Vessel - Aiden Whitmore MD s Drug Eluting Stent SGl Vessel - Aiden Whitmore MD s Cath, Left with Cors and Vent - Aiden Whitmore MD Ordered Studies 10/03/23 13:28 CTA chest dissec wo/w con [CT angio chest dissec wo/w con] Stat 10/05/23 07:07 CL Cath Imgs for PACS use only Routine 10/05/23 07:42 CL IVUS Coronary Single Vessel Routine 10/05/23 08:41 CL IVUS Coronary Single Vessel Routine Diabetes Follow up Diabetes Follow-up Needed for HgbA1c >9%,Newly Diagnosed Diabetes Hospital Course (1) NSTEMI (non-ST elevated myocardial infarction): He underwent left heart catheterization on October 04 and had angioplasty of an in-stent LAD stenosis. Heparin drip has been discontinued. Cardiology entry noted. He can be discharged home today, October 05. No recurrent chest pain. Appreciate cardiology consultation and recommendations. (2) CAD (coronary artery disease): History of extensive CAD and PCI procedures. Continue current medical management. (3) HTN (hypertension): Valsartan dosage uptitrated on October 03. Continue amlodipine. Hydrochlorothiazide has been discontinued (4) Type 2 diabetes mellitus: Elevated glucose and hemoglobin A1c on admission. He is now on an ADA diet and sliding scale coverage. He has been started on metformin 500 mg twice daily. A prescription for home glucose monitor and supplies was given to the patient (5) Psoriasis: Patient stopped following with dermatology. He is using topical betamethasone 0.05% BID as needed. Plan Home today, October 05 Total Time Total Time Spent Total Time Spent (In Minutes): 45 minutes Discharge Plan Discharge Items Patient Disposition: Home - Self-Care Reason For Visit: CHEST PAIN Discharge Diagnosis: Non-ST elevation PA, uncontrolled hypertension, new onset type 2 diabetes Activity: Resume your previous activity Non-emergency contact: Primary Care Provider and Java Software Developer Call non-emergency contact if: you have any medication questions and your symptoms worsen Follow-up/Referrals: Aiden Brewer MD [Primary Care Provider] - Diet: Carb Consistent or DM2 and Heart Healthy Addtl Attending Provider Instructions: The losartan has been increased. Hydrochlorothiazide has been discontinued. Metformin has been added for diabetic control. Check fasting sugar levels every morning before breakfast and keep a record for your primary care provider. Use nitroglycerin tablets under the tongue as directed for any recurrent chest discomfort Pending Studies at Discharge: No Stand-Alone Forms: [facility] [employer], Smoking Cessation Medications and DC Order Prescriptions: New metformin 500 mg Tablet 500 mg PO BIDM Qty: 60 0RF valsartan [Diovan] 80 mg Tablet 320 mg PO DAILY Qty: 30 0RF aspirin 81 mg Tablet,Delayed Release (Dr/Ec) 81 mg PO QAM Qty: 0 0RF Continued nitroglycerin [Nitrostat] 0.4 mg tablet, sublingual 0.4 mg SL Q5M PRN (Reason: chest pain) Qty: 1 0RF metoprolol succinate 25 mg tablet extended release 24 hr 25 mg PO DAILY Qty: 90 3RF Revitadeam Psoriasis Cream 1 applic topical 2XWK atorvastatin 80 mg tablet 80 mg PO DAILY clopidogrel [Plavix] 75 mg tablet 75 mg PO DAILY Qty: 30 3RF amlodipine 10 mg tablet 10 mg PO DAILY Qty: 30 3RF Discontinued valsartan-hydrochlorothiazide 160-25 mg tablet 1 tab PO DAILY Discharge Orders: Discharge Order (Routine); Ordered 10/06/23 Ordered By: Anival Feliz Admission Data Admit Date/Time: 10/03/23 13:22 Attending Provider: Anival Feliz Admit Provider: Anival Feliz Primary Care Provider: Aiden Brewer Other Providers: Anival Feliz; Ochoa Lozoya Coding Level of Care Code 26003 INP/OBS DISCH >30 MIN Diagnoses NSTEMI (non-ST elevated myocardial infarction) I21.4 CAD (coronary artery disease) I25.10 Associated angina: unspecified whether angina present Coronary Disease-Associated Artery/Lesion type: unspecified vessel or lesion type [place] vs. transplanted heart: [place] heart HTN (hypertension) I10 Type 2 diabetes mellitus E11.9 Psoriasis L40.9
[2023-10-06] MEDS: metFORMIN HCL 500 MG TAB PO SCH (12:46)
== END 2023-10-06 13:25 | disposition home or self-care (01) | DRG 322 ==
LOC: ED 11:32 → 4W 13:22

== ENCOUNTER 2025-03-11 14:57 | Inpatient (IN) ==
--- NOTE | 2025-03-11 15:29 | Emergency Department Note ---
Impression & Plan New onset atrial fibrillation, Left ureteral calculus, Acute left flank pain ED Provider Note CHIEF COMPLAINT: Acute left flank pain x 90 minutes HISTORY OF PRESENT ILLNESS: Patient is a 69-year-old male with past medical history significant for hypertension, dyslipidemia, diabetes, psoriasis, coronary artery disease status post WA and stenting, among other chronic medical problems, who presents to the emergency department for evaluation of the abrupt onset of left flank pain. Patient reports that he was active today, but was feeling well. He was doing some heavy lifting. About 90 minutes ago he noticed an ache in his left low back, he thought it was from lifting, but the pain steadily escalated in severity. He states the pain began to wrap around to the left lower abdomen. He currently rates his pain an 8/10. He has been nauseous and had dry heaves, and feels restless. He had 2 loose movements today, nonbloody, nonmelanotic. He is able to void without difficulty. No hematuria. Denies history of kidney stones. He is never had pain like this before. REVIEW OF SYSTEMS: Review of systems as per HPI. All other systems reviewed were negative. 10 systems reviewed. PMH: External medical records are reviewed and summarized as above/below. See Problem List. SOCIAL HISTORY: Patient lives at home with his family. Employed. PHYSICAL EXAM: Vital Signs: Reviewed Nurse's notes. CONSTITUTIONAL: Patient is an uncomfortable appearing 69-year-old male who is awake and alert and in mild distress due to his symptoms. EYES: Pupils equal, round, reactive to light and accommodation. EOMs intact without nystagmus. Sclera are anicteric. ENT: Tympanic membranes intact, with normal landmarks. External canals are clear. Oral and nasopharynx are clear. Mucous membranes are moist, no lesions, tongue and gums appear normal. CARDIOVASCULAR: Regular rate and rhythm. Peripheral pulses easily palpable. RESPIRATORY: Breath sounds equal and clear to auscultation. ABDOMEN: Bowel sounds are present. The abdomen is soft, obese, nontender, nondistended. No guarding or rebound. INTEGUMENTARY: Extensive psoriatic plaque lesions noted. LYMPH: No lymphadenopathy. EMERGENCY DEPARTMENT COURSE: The patient was seen and assessed as above. External medical records are reviewed. He presents to the emergency department for evaluation of acute left flank pain with associated nausea that started this afternoon. IV lock was initiated and laboratory studies were collected. CBC with differential, CMP and urinalysis were ordered. He was treated with a liter bolus of normal saline solution, Zofran 4 mg, morphine 4 mg and Toradol [address] scan of the abdomen and pelvis was ordered to evaluate for kidney stone. Diagnostics, as interpreted by me: Laboratory studies: Normal white count 90,700, H&H 16.7 and 47.9 normal platelet count. No significant electrolyte imbalance or STEPHEN, nonfasting glucose is elevated at 245. No concerning transaminitis. Urine microscopy notes 3+ glucose, 3+ blood and greater than 20 RBCs, but no WBCs or leukocyte esterase and no bacteria. ECG: Atrial fibrillation with RVR, 138 bpm. No acute ischemic changes. Cardiac monitoring: An order was placed for continuous cardiac monitoring. Patient initially noted to be in normal sinus rhythm, heart rate 75 per my interpretation. Around 1619, patient went into atrial fibrillation with RVR, rate in the 140s. After Lopressor 5 mg IV x 2, atrial fibrillation, 109 bpm noted. Imaging studies: CT scan of the abdomen and pelvis without contrast notes bilateral nephrolithiasis and a 5 mm mid left ureteral stone with resulting hydronephrosis. Patient did require supplemental nasal cannula oxygen due to transient hypoxia secondary to narcotics. 1619: notified by child monitor that patient had developed A-fib with RVR. EKG confirms this. Patient immediately reviewed with Dr. Robbins. Additional IV fluids ordered. Patient was treated with Lopressor 5 mg IV x 2, with good response, remained in atrial fibrillation, but controlled with heart rate was in the 90s. Patient essentially asymptomatic the entire time he was in the A-fib. He was complaining mostly of the left flank pain. He did receive a second dose of morphine, 6 mg IV for the increased pain around the time that he went into A- fib. Patient was reassessed frequently. He remained stable in the emergency department. He did report improvement in his pain with the IV narcotics, and a dose of Dilaudid that had been ordered was not administered. I did review laboratory studies and CT scan findings with the patient. His pain is certainly related to the left mid ureteral stone. Fortunately no evidence for superimposed UTI/pyelonephritis. Treatment for stone is likely supportive. However, given the new onset atrial fibrillation, patient will require further inpatient care and cardiology evaluation. Patient was comfortable with this. Patient reviewed with ED child support case officer, [facility] Chronic conditions affecting care: Coronary artery disease, history of WA, hypertension, dyslipidemia, diabetes Differential diagnosis: UTI, pyelonephritis, kidney stone, shingles, hernia, diverticulitis, among others. I have personally spent greater than 30 minutes of critical care time in the direct management of this patient. This includes bedside care, interpretation of diagnostic studies, and testing, discussion with consultants, patient, and family members, and other required patient management activities. This 30 minutes is in excess of all separately billable procedures. Past Med/Surg History Problem List Acute left flank pain (Acute) Left ureteral calculus (Acute) New onset atrial fibrillation (Acute) Chronic left hip pain Patient cannot afford medications Pulmonary nodule, left on CTA 10/03/2023 Type 2 diabetes mellitus Medical History Precordial chest pain Hypertensive emergency NSTEMI (non-ST elevated myocardial infarction) HTN (hypertension) CAD (coronary artery disease) Psoriasis Lymphadenopathy Angina pectoris Dizziness De Quervain's tenosynovitis Acute myocardial infarction Surgical History History of knee surgery Family History Mother Cancer Father Coronary heart disease Diabetes Brother Diabetes Social History Smoking Status: Former smoker Tobacco Type: Cigarettes Age Started Using Tobacco: 20; Age Quit Using Tobacco: 56; packs per day: 2; Smoking End Date: 2010; Hx Alcohol Use: No Hx Substance Use: No Preferred Language: [place] Communication Ability: Effective Chief Embalmer Required: No Beliefs That Will Affect Care: None Current Living Situation: Spouse current occupational status: employed Feels Safe at Home: Yes Safety Concerns: Feels Safe At This Time Assistive Devices: None Allergies Allergies Allergy/AdvReac Type Severity Reaction Status Date / Time labetalol AdvReac Intermediate hallucinati Verified 03/11/25 17:23 on Home Meds Previous Rx's Medication Instructions Recorded nitroglycerin 0.4 mg sublingual 0.4 mg sublingual Q5M PRN chest 09/23/20 tablet (Nitrostat) pain #1 tab aspirin 81 mg tablet,delayed 81 mg PO QAM #0 tabs 10/06/23 release amlodipine 10 mg tablet 10 mg PO DAILY #90 tabs 02/17/24 atorvastatin 80 mg tablet 80 mg PO DAILY #90 tabs 02/17/24 metformin 500 mg tablet,extended 500 mg PO BID #180 tabs 02/17/24 release 24 hr clopidogrel 75 mg tablet (Plavix) 75 mg PO DAILY #90 tabs 09/20/24 valsartan 320 mg tablet 320 mg PO DAILY #90 tabs 10/25/24 metoprolol succinate 25 mg 25 mg PO DAILY #90 tabs 11/06/24 tablet,extended release 24 hr glipizide 2.5 mg tablet, extended 2.5 mg PO DAILY #30 tabs 12/28/24 release 24 hr Results & Data (ED) Vital Signs Vital Signs - 24 hr 03/11/25 15:06 03/11/25 15:35 03/11/25 15:37 Temperature 36.6 C Temperature Source Temporal Artery Scan Pulse Rate 65 84 Pulse Rate [Apical] 75 Pulse Rate from SpO2 Sensor Pulse Rhythm [Apical] Pulse Strength [Apical] Respiratory Rate 20 22 Respiratory Effort / Characteristics Non-Labored Spontaneous Respiratory Depth Normal Normal Blood Pressure 219/89 H Blood Pressure [Right Arm] 232/111 H Blood Pressure Mean 132 Blood Pressure Mean [Right Arm] 151 Pulse Oximetry 93 92 Oxygen Delivery Method Room Air Room Air Oxygen Flow Rate Sepsis Recent Fever Within 48 Hours No Sepsis New/Unexplained Change in Mental Status No Sepsis Action Taken by Nursing No Action Required 03/11/25 15:37 03/11/25 16:03 03/11/25 16:16 Temperature Temperature Source Pulse Rate 74 136 H Pulse Rate [Apical] Pulse Rate from SpO2 Sensor 76 136 H Pulse Rhythm [Apical] Pulse Strength [Apical] Respiratory Rate 12 16 Respiratory Effort / Characteristics Respiratory Depth Blood Pressure 239/101 H 247/158 H Blood Pressure [Right Arm] Blood Pressure Mean 182 185 Blood Pressure Mean [Right Arm] Pulse Oximetry 94 Oxygen Delivery Method Room Air Room Air Oxygen Flow Rate Sepsis Recent Fever Within 48 Hours Sepsis New/Unexplained Change in Mental Status Sepsis Action Taken by Nursing 03/11/25 16:27 03/11/25 16:36 03/11/25 16:43 Temperature Temperature Source Pulse Rate 144 H Pulse Rate [Apical] 155 H 167 H Pulse Rate from SpO2 Sensor Pulse Rhythm [Apical] Irregular Pulse Strength [Apical] Normal Respiratory Rate 24 19 Respiratory Effort / Characteristics Respiratory Depth Normal Blood Pressure 156/114 H Blood Pressure [Right Arm] 245/161 H 156/114 H Blood Pressure Mean Blood Pressure Mean [Right Arm] 189 128 Pulse Oximetry 95 95 Oxygen Delivery Method Nasal Cannula Nasal Cannula Oxygen Flow Rate 4 4 Sepsis Recent Fever Within 48 Hours Sepsis New/Unexplained Change in Mental Status Sepsis Action Taken by Nursing 03/11/25 16:48 03/11/25 17:01 03/11/25 17:03 Temperature Temperature Source Pulse Rate 120 H 122 H Pulse Rate [Apical] 115 H Pulse Rate from SpO2 Sensor Pulse Rhythm [Apical] Pulse Strength [Apical] Respiratory Rate 19 Respiratory Effort / Characteristics Respiratory Depth Blood Pressure 141/95 H 141/95 H Blood Pressure [Right Arm] 148/109 H Blood Pressure Mean Blood Pressure Mean [Right Arm] 122 Pulse Oximetry 95 Oxygen Delivery Method Nasal Cannula Oxygen Flow Rate 4 Sepsis Recent Fever Within 48 Hours Sepsis New/Unexplained Change in Mental Status Sepsis Action Taken by Nursing 03/11/25 17:06 03/11/25 17:18 03/11/25 17:22 Temperature Temperature Source Pulse Rate 123 H 104 H Pulse Rate [Apical] 103 H Pulse Rate from SpO2 Sensor Pulse Rhythm [Apical] Pulse Strength [Apical] Respiratory Rate 20 Respiratory Effort / Characteristics Non-Labored Respiratory Depth Normal Blood Pressure 152/98 H Blood Pressure [Right Arm] 152/98 H Blood Pressure Mean Blood Pressure Mean [Right Arm] 116 Pulse Oximetry 95 Oxygen Delivery Method Nasal Cannula Oxygen Flow Rate 4 Sepsis Recent Fever Within 48 Hours Sepsis New/Unexplained Change in Mental Status Sepsis Action Taken by Nursing 03/11/25 18:12 03/11/25 19:00 03/11/25 19:00 Temperature Temperature Source Pulse Rate Pulse Rate [Apical] 92 H Pulse Rate from SpO2 Sensor Pulse Rhythm [Apical] Pulse Strength [Apical] Respiratory Rate 24 Respiratory Effort / Characteristics Respiratory Depth Blood Pressure 168/108 H 168/108 H Blood Pressure [Right Arm] 144/87 H Blood Pressure Mean 133 133 Blood Pressure Mean [Right Arm] 106 Pulse Oximetry 95 Oxygen Delivery Method Nasal Cannula Oxygen Flow Rate 4 Sepsis Recent Fever Within 48 Hours Sepsis New/Unexplained Change in Mental Status Sepsis Action Taken by Nursing 03/11/25 19:03 Temperature Temperature Source Pulse Rate 111 H Pulse Rate [Apical] Pulse Rate from SpO2 Sensor 103 H Pulse Rhythm [Apical] Pulse Strength [Apical] Respiratory Rate 14 Respiratory Effort / Characteristics Respiratory Depth Blood Pressure 168/108 H Blood Pressure [Right Arm] Blood Pressure Mean 128 Blood Pressure Mean [Right Arm] Pulse Oximetry 94 Oxygen Delivery Method Oxygen Flow Rate Sepsis Recent Fever Within 48 Hours Sepsis New/Unexplained Change in Mental Status Sepsis Action Taken by Retirement Medications Current Medication List: was personally reviewed by me Laboratory Data Attestation: I reviewed the patient's lab results. 03/11/25 15:24 03/11/25 15:24 Lab Results 03/11/25 03/11/25 Range/Units 15:24 17:53 WBC 8.78 (4.8-10.8) K/ul RBC 5.58 (4.70-6.10) M/uL Hgb 16.7 (14.0-18.0) g/dl Hct 47.9 (42.0-52.0) % MCV 85.8 (80.0-100.0) fL MCH 29.9 (25.0-34.0) pg MCHC 34.9 (32.0-36.0) g/dL RDW Std Deviation 39.4 (36.4-46.3) fL RDW Coeff of Ruth 12.8 (11.5-14.5) % Plt Count 196 (130-400) K/uL MPV 9.3 L (9.4-12.4) fL Immature Gran % (Auto) 0.2 % Neut % (Auto) 70.7 % Lymph % (Auto) 19.4 % [place] % (Auto) 6.7 % Eos % (Auto) 2.3 % Baso % (Auto) 0.7 % Neut # (Auto) 6.21 (1.40-6.50) K/uL Lymph # (Auto) 1.70 (1.20-3.40) K/uL [place] # (Auto) 0.59 (0.11-0.59) K/uL Eos # (Auto) 0.20 (0.00-0.50) K/uL Baso # (Auto) 0.06 (0.00-0.20) K/uL Immature Gran # (Auto) 0.02 (0.01-0.20) K/uL Sodium 138 (136-145) mmol/L Potassium 3.8 (3.5-5.1) mmol/L Chloride 101 (98-107) mmol/L Carbon Dioxide 28 (21-32) mmol/L Anion Gap 9 (3-11) BUN 14 (6-23) mg/dl Creatinine 1.12 (0.6-1.4) mg/dl Est Cr Clr Drug Dosing Not Reportable eGFR 72.00 BUN/Creatinine Ratio 12.5 (10-20) Glucose 245 H (70-99(Fasting)) mg/dl Calcium 10.0 (8.6-10.3) mg/dl Magnesium 1.8 (1.7-2.4) mg/dl Total Bilirubin 1.2 H (0.2-1.0) mg/dl AST 30 (13-39) U/L ALT 39 (7-52) U/L Alkaline Phosphatase 67 (34-104) U/L Total Protein 7.9 (6.0-8.3) gm/dl Albumin 5.0 (3.4-5.0) gm/dl Globulin 2.9 (2.5-4.0) gm/dl Albumin/Globulin Ratio 1.7 (0.9-2) TSH 1.110 (0.300-4.500) uIu/ml Urine Color Dark Yellow Urine Appearance Cloudy A (Clear) Urine pH 5.5 (4.5-7.5) Ur Specific Angelica 1.030 (1.000-1.030) Urine Protein 3+ H (Negative) Urine Glucose (UA) 3+ H (Negative) Urine Ketones 1+ H (Negative) Urine Blood 3+ H (Negative) Urine Nitrite Negative (Negative) Urine Bilirubin Negative (Negative) Urine Urobilinogen Negative (Negative) Ur Leukocyte Esterase Negative (Negative) Urine WBC (Auto) 0-5 (0-5) /hpf Urine RBC (Auto) >20 H (0-2) /hpf U Hyaline Cast (Auto) 6-10 H (0-2) /lpf U Epithel Cells (Auto) 0-2 (0-2) /hpf Urine Bacteria (Auto) None Seen (None Seen) Hyaline Casts Present A (None Presnt) /lpf Urine Mucus Present A (None Prsent) Urine Comment Administered Medications Acetaminophen (Acetaminophen 325 Mg Tab) 650 mg PO Q6H JUDY Stop: 04/10/25 20:59 Last Admin: 03/12/25 03:21 Dose: Not Given Documented By: Admin: 03/11/25 21:42 Dose: Not Given Documented By: SHER Insulin Aspart (Insulin Aspart Per Unit Charge) 0 units SC ACHS JUDY Stop: 04/10/25 20:59 Last Admin: 03/11/25 21:47 Dose: 8 units Documented By: SHER Co-signed By: yaima Insulin Glargine (Lantus Per Unit Charge) 10 units SQ BID JUDY Stop: 04/10/25 20:59 Last Admin: 03/11/25 21:47 Dose: 10 units Documented By: SHER Co-signed By: yaima Metoprolol Succinate (Metoprolol Succ 25mg Ext Rel Tab) 25 mg PO BID JUDY Stop: 04/10/25 20:59 Last Admin: 03/11/25 21:40 Dose: 25 mg Documented By: SHER Tamsulosin HCl (Tamsulosin Hcl 0.4 Mg Cap) 0.4 mg PO HS JUDY Stop: 04/10/25 20:59 Last Admin: 03/11/25 21:41 Dose: 0.4 mg Documented By: SHER Discontinued Medications Hydromorphone HCl (Hydromorphone Inj 1 Mg/Ml Syringe) 1 mg IV NOW STA Stop: 03/11/25 17:36 Last Admin: 03/11/25 18:28 Dose: Not Given Documented By: ABIGAIL Sodium Chloride (Nss) 1,000 mls @ 999 mls/hr IV .Q1H1M JUDY Stop: 03/11/25 16:26 Last Infusion: 03/11/25 16:36 Dose: Infused Documented By: Admin: 03/11/25 15:32 Dose: 999 mls/hr Documented By: ABIGAIL Sodium Chloride (Nss) 1,000 mls @ 999 mls/hr IV .Q1H1M JUDY Stop: 03/11/25 17:21 Last Infusion: 03/11/25 17:52 Dose: Infused Documented By: Admin: 03/11/25 16:29 Dose: 999 mls/hr Documented By: Sodium Chloride (Nss) 1,000 mls @ 125 mls/hr IV .Q8H JUDY Stop: 03/12/25 04:59 Last Admin: 03/11/25 21:37 Dose: 125 mls/hr Documented By: SHER Ketorolac Tromethamine (Ketorolac Tromethamine 15 Mg/Ml Vial) 15 mg IV NOW STA Stop: 03/11/25 15:26 Last Admin: 03/11/25 15:32 Dose: 15 mg Documented By: ABIGAIL Metoprolol Tartrate (Metoprolol Tartrate 1 Mg/Ml Vial) 5 mg IV NOW STA Stop: 03/11/25 16:41 Last Admin: 03/11/25 16:43 Dose: 5 mg Documented By: JINNY Metoprolol Tartrate (Metoprolol Tartrate 1 Mg/Ml Vial) 5 mg IV NOW STA Stop: 03/11/25 16:55 Last Admin: 03/11/25 17:01 Dose: 5 mg Documented By: ABIGAIL Morphine Sulfate (Morphine Sulfate 4 Mg/Ml 1 Ml Carp\Vial) 4 mg IV NOW STA Stop: 03/11/25 15:26 Last Admin: 03/11/25 15:32 Dose: 4 mg Documented By: ABIGAIL Morphine Sulfate (Morphine Sulfate 10 Mg/Ml Carp/Vial) 6 mg IV NOW STA Stop: 03/11/25 16:25 Last Admin: 03/11/25 16:29 Dose: 6 mg Documented By: Morphine Sulfate (Morphine Sulfate 4 Mg/Ml 1 Ml Carp\Vial) 4 mg IV NOW STA Stop: 03/11/25 19:04 Last Admin: 03/11/25 19:56 Dose: Not Given Documented By: RUSSEL Ondansetron HCl (Ondansetron Inj 2 Mg/Ml 2 Ml Vial) 4 mg IV NOW STA Stop: 03/11/25 15:26 Last Admin: 03/11/25 15:32 Dose: 4 mg Documented By: ABIGAIL Imaging Data Attestation: I personally reviewed and interpreted this imaging study as follows: Radiologist's Impression: Abdomen/Pelvis CT 03/11/25 15:25 INDICATION: Acute left flank pain COMPARISON: None TECHNIQUE: Contiguous axial CT images were obtained through the abdomen and pelvis. Dose reduction according to patient size and/or automated exposure control techniques have been utilized for this exam. FINDINGS: CT ABDOMEN: LUNG BASES: Grossly clear. LIVER: No worrisome hepatic lesions. SPLEEN: Unremarkable. GALLBLADDER: Small calcified gallstone. KIDNEYS: There are couple small nonobstructing right intrarenal calculi measuring 2-3 mm. There is 2 mm nonobstructing left intrarenal calculus. Minimal left hydronephrosis . There is 2.3 cm right renal cyst. There is 8 mm exophytic left renal cyst. PANCREAS: Unremarkable. ADRENAL GLANDS: Unremarkable. PROXIMAL BOWEL: No small bowel obstruction. RETROPERITONEUM: No AAA. No significant lymphadenopathy. OTHER: Nonspecific haziness in the mesenteric fat. No abscess CT PELVIS: URETERS: There is 5 mm calculus in the left mid ureter. URINARY BLADDER: No bladder calculi. PELVIC ORGANS: Unremarkable. DISTAL BOWEL: [id number] stool in the colon. Normal appendix OTHER: No significant lymphadenopathy. There is no free pelvic fluid. Incidental intro muscular lipoma anterior to the left hip. IMPRESSION: There is a 5 mm calculus in the left mid ureter causing minimal hydronephrosis. Additional tiny bilateral nonobstructing intrarenal calculi. Cholelithiasis. Electronically signed by Fawn Lange 03-11-2025 4:43 PM Discharge Plan Visit Data Chief Complaint: Back Injury/Pain Stated Complaint: SEVERE PAIN IN THE BACK ED Provider: Epi Robbins ED Midlevel Provider: Sidney Thakkar Discharge Problem: New onset atrial fibrillation, Left ureteral calculus, Acute left flank pain Patient Disposition: Admitted As Inpatient Condition: Fair Discharge Instructions Interventions: ED Discharge Assessment Last Done: 03/11/25 20:08 Addendum March 12, 2025 05:11 I was consulted by the Advanced Practice Provider and was substantively involved in the patient's visit.This includes aspects of the HPI, MDM, diagnostic interpretations, and disposition/plan. I discussed the case with the BETSY and agree with the findings and plan as documented in BETSY Bijan's note.
[2025-03-11] MEDS: SODIUM CHLORIDE 0.9% 1,000 ML IV SCH ×3 (15:32→21:37)
[2025-03-11] MEDS: ONDANSETRON INJ 2 MG/ML 2 ML VIAL IV STA (15:32)
[2025-03-11] MEDS: MoRPHine SULFATE 4 MG/ML 1 ML CARP\\VIAL IV STA ×2 (15:32→19:56)
[2025-03-11] MEDS: KETOROLAC TROMETHAMINE 15 MG/ML VIAL IV STA (15:32)
[2025-03-11 16:01] LABS: Hematocrit (blood only) 47.9 % (42.0-52.0); Hemoglobin 16.7 g/dl (14.0-18.0); Immature Granulocytes # (auto) 0.02 K/uL (0.01-0.20); Immature Granulocytes % (auto) 0.2 %; Mean Corpuscular Hemoglobin 29.9 pg (25.0-34.0); Mean Corpuscular Volume 85.8 fL (80.0-100.0); Platelet Count 196 K/uL (130-400); RDW Standard Deviation 39.4 fL (36.4-46.3); Red Blood Count 5.58 M/uL (4.70-6.10); White Blood Count 8.78 K/ul (4.8-10.8)
[2025-03-11 16:13] LABS: Alanine Aminotransferase 39 U/L (7-52); Albumin Globulin Ratio 1.7 (0.9-2); Albumin Level 5.0 gm/dl (3.4-5.0); Alkaline Phosphatase 67 U/L (34-104); Anion Gap 9 (3-11); Bilirubin,Total 1.2 mg/dl (0.2-1.0); Blood Urea Nitrogen 14 mg/dl (6-23); Calcium 10.0 mg/dl (8.6-10.3); Carbon Dioxide 28 mmol/L (21-32); Chloride 101 mmol/L (98-107); Globulin 2.9 gm/dl (2.5-4.0); Glucose 245 mg/dl (70-99(Fasting)); Potassium 3.8 mmol/L (3.5-5.1); Sodium 138 mmol/L (136-145); Total Protein 7.9 gm/dl (6.0-8.3)
[2025-03-11] MEDS: MoRPHine SULFATE 10 MG/ML CARP/VIAL IV STA (16:29)
[2025-03-11 16:43] LABS: Magnesium 1.8 mg/dl (1.7-2.4)
[2025-03-11] MEDS: METOPROLOL TARTRATE 1 MG/ML VIAL IV STA ×2 (16:43→17:01)
--- NOTE | 2025-03-11 16:43 | CT Scan Report ---
INDICATION: Acute left flank pain COMPARISON: None TECHNIQUE: Contiguous axial CT images were obtained through the abdomen and pelvis. Dose reduction according to patient size and/or automated exposure control techniques have been utilized for this exam. FINDINGS: CT ABDOMEN: LUNG BASES: Grossly clear. LIVER: No worrisome hepatic lesions. SPLEEN: Unremarkable. GALLBLADDER: Small calcified gallstone. KIDNEYS: There are couple small nonobstructing right intrarenal calculi measuring 2-3 mm. There is 2 mm nonobstructing left intrarenal calculus. Minimal left hydronephrosis . There is 2.3 cm right renal cyst. There is 8 mm exophytic left renal cyst. PANCREAS: Unremarkable. ADRENAL GLANDS: Unremarkable. PROXIMAL BOWEL: No small bowel obstruction. RETROPERITONEUM: No AAA. No significant lymphadenopathy. OTHER: Nonspecific haziness in the mesenteric fat. No abscess CT PELVIS: URETERS: There is 5 mm calculus in the left mid ureter. URINARY BLADDER: No bladder calculi. PELVIC ORGANS: Unremarkable. DISTAL BOWEL: [id number] stool in the colon. Normal appendix OTHER: No significant lymphadenopathy. There is no free pelvic fluid. Incidental intro muscular lipoma anterior to the left hip. IMPRESSION: There is a 5 mm calculus in the left mid ureter causing minimal hydronephrosis. Additional tiny bilateral nonobstructing intrarenal calculi. Cholelithiasis. Electronically signed by Fawn Lange 03-11-2025 4:43 PM
[2025-03-11 18:24] LABS: Appearance Urine Cloudy (Clear); Bacteria Urine Automated None Seen (None Seen); Epithelial Cell Urine Auto 0-2 /hpf (0-2); Glucose Urine UA 3+ (Negative); RBC Urine Automated >20 /hpf (0-2); WBC Urine Automated 0-5 /hpf (0-5)
[2025-03-11] MEDS: HYDROmorphone INJ 1 MG/ML SYRINGE IV STA (18:28)
--- NOTE | 2025-03-11 18:42 | History & Physical Report ---
Date of Service March 11, 2025 Assessment & Plan (1) New onset atrial fibrillation: (2) Left ureteral calculus: (3) Acute left flank pain: (4) Type 2 diabetes mellitus: (5) Patient cannot afford medications: Plan # Left-sided kidney stone Stone in mid-ureter, 5 mm. Uncertain if it will pass spontaneously or require intervention. Mild hydro and Cr is normal. Electrolytes normal. Diagnostic plan: Strain urine overnight to catch stone for lab analysis. Consult urologist if stone does not pass by morning. Treatment plan: Administer IV fluids and Flomax to facilitate passage. Pain management with Toradol, IV morphine 4-6 mg, scheduled APAP. Abstain from food after midnight in case procedure needed tomorrow. # New onset rapid atrial fibrillation Likely experienced previous episodes, first documented. Focus on rate control tonight, slightly elevated still. Diagnostic plan: Perform heart echo to assess valves, conduct thyroid function tests. Treatment plan: increased metoprolol to 25 mg bid starting tonight. metoprolol 5 mg IV q4h PRN HR>120. tele monitor. Start apixaban. Investigate cost tomorrow - if too expensive, can use warfarin monitoring may be difficult with his frequent travel. Discuss increased stroke risk associated with atrial fibrillation. Currently on aspirin and Plavix due to multiple stents. Discuss with Dr. Whitmore potential replacement of either aspirin or Plavix with blood thinner. # Psoriasis Not on medication as previous topical treatment . In past was on MTX at some point. -can prescribe clobetazol # Hypertension # CAD - Per Dr. Whitmore' recent note: "-- inferior STEMI post PCI with 2 BMS to RCA 05/2011 -- JERRICA to mid LAD in stent restenosis 06/2016 -- JERRICA to late-mid LAD disease 09/2023 --residual moderate circumflex, small ostial diagonal disease. Patent mid RCA stents" -stable -cont DAPT with ASA and clopidogrel - on extended DAPT because of multiple overlapping stents -ARB/BB/CCB, no GLP-1 or SGLT2 due to cost -hold amlodipine, continue valsartan, increased metoprolol -monitor BP response # DM type 2 - A1c increased to 9% once off SGLT2, on metformin - hold metformin - premeal aspart and glargine - diabetic diet Medical Complexity: Medical decision making was complex for this encounter. New problems or diagnoses today which remain uncontrolled include Left-sided kidney stone, New onset rapid atrial fibrillation. High risk medications and treatments include IV beta hong, IV morphine, apixaban, aspirin, Plavix. History of Present Illness Chief Complaint: left back / flank pain Primary Care Provider: Bry Serrato, The patient consented to use of [employer], an AI based tool that will listen to our encounter and draft a clinical note based on our conversation. All notes will be reviewed and edited by me before entering them into the medical record. 69 y/o with hx CAD and DM who came in with left back/flank pain Acute onset this afternoon, left flank/back pain and found to have L mid- ureteral 5 mm kidney stone While he was in the ED he went into new onset rapid afib. 2L IVF given. metoprolol 5 mg IV x 2 heart rate now in 90-100s. Mild chest tightness with afib, resolved after rate controlled. Sudden onset of left-sided flank and back pain today, he initially attributed to back strain. Radiating to LLQ of abdomen. First encounter with a kidney stone. Pain initially severe, now low level, but escalated again to moderate during interview. No hematuria or dysuria. No more nausea once pain controlled but reports dizziness, possibly related to heart condition. No abdominal pain or diarrhea. Normal diet and hydration. No leg swelling. Given medication for pain relief which did help. In the past he remembers two episodes of chest discomfort, lasting 5-10 minutes, with fast irregular pulse. [facility] Electroly[facility] Dr. Whitmore advised reporting recurrence and would arrange heart monitor. No follow-up due to no recurrence. No shortness of breath but lightheaded when standing today up to bathroom. Chest pressure earlier today, now resolved. Currently on metoprolol XL 25 mg daily, did take all his usual meds this AM except glipizide and one other med he ran out of this week. No abnormal bleeding or bloody stools. On aspirin and Plavix due to multiple stents. Not on medication for psoriasis as previous topical treatment . Previously used clobetasol, which was effective. 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 Allergies Allergy/AdvReac Type Severity Reaction Status Date / Time labetalol AdvReac Intermediate hallucinati Verified 03/11/25 17:23 on Home Medications Medication Instructions Recorded Confirmed Type nitroglycerin 0.4 mg sublingual 0.4 mg sublingual Q5M PRN chest 09/23/2010/29 Rx tablet (Nitrostat) pain #1 tab aspirin 81 mg tablet,delayed 81 mg PO QAM #0 tabs 10/06/23 03/11/25 Rx release amlodipine 10 mg tablet 10 mg PO DAILY #90 tabs 02/17/24 03/11/25 Rx atorvastatin 80 mg tablet 80 mg PO DAILY #90 tabs 02/17/24 03/11/25 Rx metformin 500 mg tablet,extended 500 mg PO BID #180 tabs 02/17/24 03/11/25 Rx release 24 hr clopidogrel 75 mg tablet (Plavix) 75 mg PO DAILY #90 tabs 09/20/24 03/11/25 Rx valsartan 320 mg tablet 320 mg PO DAILY #90 tabs 10/25/24 03/11/25 Rx metoprolol succinate 25 mg 25 mg PO DAILY #90 tabs 11/06/24 03/11/25 Rx tablet,extended release 24 hr glipizide 2.5 mg tablet, extended 2.5 mg PO DAILY #30 tabs 12/28/24 03/11/25 Rx release 24 hr Past Med/Surg History Problem List Acute left flank pain (Acute) Left ureteral calculus (Acute) New onset atrial fibrillation (Acute) Chronic left hip pain Patient cannot afford medications Pulmonary nodule, left on CTA 10/03/2023 Type 2 diabetes mellitus Medical History Precordial chest pain Hypertensive emergency NSTEMI (non-ST elevated myocardial infarction) HTN (hypertension) CAD (coronary artery disease) Psoriasis Lymphadenopathy Angina pectoris Dizziness De Quervain's tenosynovitis Acute myocardial infarction Surgical History History of knee surgery Family History Mother Cancer Father Coronary heart disease Diabetes Brother Diabetes Social History Smoking Status: Former smoker Tobacco Type: Cigarettes Age Started Using Tobacco: 20; Age Quit Using Tobacco: 56; packs per day: 2; Hx Alcohol Use: No Hx Substance Use: No Preferred Language: Kiswahili Communication Ability: Effective 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 Vital signs: Within normal limits. HEENT: Within normal limits. Respiratory: Clear apices, mild bibasilar crackles posteriorly. Cardiovascular: Irregularly irregular heart sounds, no murmur. No carotid bruits Gastrointestinal: Nontender. ND +BT Extremities: No leg edema, normal DP pulses. Skin: Warm and dry, psoriasis plaques extensive on lower back, scattered on elbows and knees Neurological: Normal. Psychiatric: Normal. Results & Data Results & Data Vital Signs (Past 12 Hours) Vital Signs Temp Pulse Pulse Resp BP BP Pulse Ox 03/11/25 18:12 92 H 24 144/87 H 95 03/11/25 17:22 104 H 152/98 H 03/11/25 17:18 103 H 20 152/98 H 95 03/11/25 17:06 123 H 03/11/25 17:03 122 H 141/95 H 03/11/25 17:01 120 H 141/95 H 03/11/25 16:48 115 H 19 148/109 H 95 03/11/25 16:43 144 H 156/114 H 03/11/25 16:36 167 H 19 156/114 H 95 03/11/25 16:27 155 H 24 245/161 H 95 03/11/25 16:16 136 H 16 247/158 H 94 03/11/25 16:03 74 12 239/101 H 03/11/25 15:37 03/11/25 15:37 75 22 232/111 H 92 03/11/25 15:35 84 03/11/25 15:06 36.6 C 65 20 219/89 H 93 O2 Del Method O2 Flow Rate 03/11/25 18:12 Nasal Cannula 4 03/11/25 17:22 03/11/25 17:18 Nasal Cannula 4 03/11/25 17:06 03/11/25 17:03 03/11/25 17:01 03/11/25 16:48 Nasal Cannula 4 03/11/25 16:43 03/11/25 16:36 Nasal Cannula 4 03/11/25 16:27 Nasal Cannula 4 03/11/25 16:16 Room Air 03/11/25 16:03 03/11/25 15:37 Room Air 03/11/25 15:37 Room Air 03/11/25 15:35 03/11/25 15:06 Room Air Laboratory Results 03/11/25 03/11/25 Range/Units 17:53 15:24 WBC 8.78 (4.8-10.8) K/ul RBC 5.58 (4.70-6.10) M/uL Hgb 16.7 (14.0-18.0) g/dl Hct 47.9 (42.0-52.0) % MCV 85.8 (80.0-100.0) fL MCH 29.9 (25.0-34.0) pg MCHC 34.9 (32.0-36.0) g/dL RDW Std Deviation 39.4 (36.4-46.3) fL RDW Coeff of Ruth 12.8 (11.5-14.5) % Plt Count 196 (130-400) K/uL MPV 9.3 L (9.4-12.4) fL Immature Gran % (Auto) 0.2 % Neut % (Auto) 70.7 % Lymph % (Auto) 19.4 % [place] % (Auto) 6.7 % Eos % (Auto) 2.3 % Baso % (Auto) 0.7 % Neut # (Auto) 6.21 (1.40-6.50) K/uL Lymph # (Auto) 1.70 (1.20-3.40) K/uL [place] # (Auto) 0.59 (0.11-0.59) K/uL Eos # (Auto) 0.20 (0.00-0.50) K/uL Baso # (Auto) 0.06 (0.00-0.20) K/uL Immature Gran # (Auto) 0.02 (0.01-0.20) K/uL Sodium 138 (136-145) mmol/L Potassium 3.8 (3.5-5.1) mmol/L Chloride 101 (98-107) mmol/L Carbon Dioxide 28 (21-32) mmol/L Anion Gap 9 (3-11) BUN 14 (6-23) mg/dl Creatinine 1.12 (0.6-1.4) mg/dl Est Cr Clr Drug Dosing Not Reportable eGFR 72.00 BUN/Creatinine Ratio 12.5 (10-20) Glucose 245 H (70-99(Fasting)) mg/dl Calcium 10.0 (8.6-10.3) mg/dl Magnesium 1.8 (1.7-2.4) mg/dl Total Bilirubin 1.2 H (0.2-1.0) mg/dl AST 30 (13-39) U/L ALT 39 (7-52) U/L Alkaline Phosphatase 67 (34-104) U/L Total Protein 7.9 (6.0-8.3) gm/dl Albumin 5.0 (3.4-5.0) gm/dl Globulin 2.9 (2.5-4.0) gm/dl Albumin/Globulin Ratio 1.7 (0.9-2) Urine Color Dark Yellow Urine Appearance Cloudy A (Clear) Urine pH 5.5 (4.5-7.5) Ur Specific [place] 1.030 (1.000-1.030) Urine Protein 3+ H (Negative) Urine Glucose (UA) 3+ H (Negative) Urine Ketones 1+ H (Negative) Urine Blood 3+ H (Negative) Urine Nitrite Negative (Negative) Urine Bilirubin Negative (Negative) Urine Urobilinogen Negative (Negative) Ur Leukocyte Esterase Negative (Negative) Urine WBC (Auto) 0-5 (0-5) /hpf Urine RBC (Auto) >20 H (0-2) /hpf U Hyaline Cast (Auto) 6-10 H (0-2) /lpf U Epithel Cells (Auto) 0-2 (0-2) /hpf Urine Bacteria (Auto) None Seen (None Seen) Hyaline Casts Present A (None Presnt) /lpf Urine Mucus Present A (None Prsent) Urine Comment Diagnostic Findings Abdomen/Pelvis CT 03/11/25 15:25 INDICATION: Acute left flank pain COMPARISON: None TECHNIQUE: Contiguous axial CT images were obtained through the abdomen and pelvis. Dose reduction according to patient size and/or automated exposure control techniques have been utilized for this exam. FINDINGS: CT ABDOMEN: LUNG BASES: Grossly clear. LIVER: No worrisome hepatic lesions. SPLEEN: Unremarkable. GALLBLADDER: Small calcified gallstone. KIDNEYS: There are couple small nonobstructing right intrarenal calculi measuring 2-3 mm. There is 2 mm nonobstructing left intrarenal calculus. Minimal left hydronephrosis . There is 2.3 cm right renal cyst. There is 8 mm exophytic left renal cyst. PANCREAS: Unremarkable. ADRENAL GLANDS: Unremarkable. PROXIMAL BOWEL: No small bowel obstruction. RETROPERITONEUM: No AAA. No significant lymphadenopathy. OTHER: Nonspecific haziness in the mesenteric fat. No abscess CT PELVIS: URETERS: There is 5 mm calculus in the left mid ureter. URINARY BLADDER: No bladder calculi. PELVIC ORGANS: Unremarkable. DISTAL BOWEL: [id number] stool in the colon. Normal appendix OTHER: No significant lymphadenopathy. There is no free pelvic fluid. Incidental intro muscular lipoma anterior to the left hip. IMPRESSION: There is a 5 mm calculus in the left mid ureter causing minimal hydronephrosis. Additional tiny bilateral nonobstructing intrarenal calculi. Cholelithiasis. Electronically signed by Fawn Lange 03-11-2025 4:43 PM PG Care Time/CCT Total # of Minutes Spent Total Time Spent with Patient: Total time spent is greater than 50% in coordination of care (as documented) at patient's floor/unit and/or counseling patient: Coding Level of Care Code 41974 INT INP/OBS CARE 3/75MIN Diagnoses New onset atrial fibrillation I48.91 Left ureteral calculus N20.1 Acute left flank pain R10.A2 Type 2 diabetes mellitus E11.9 Patient cannot afford medications Z59.86
[2025-03-11] MEDS ORDERED: ONDANSETRON INJ 2 MG/ML 2 ML VIAL IV PRN (19:04)
[2025-03-11] MEDS ORDERED: GLUCOSE 10 TAB/TUBE PO PRN (20:37)
[2025-03-11] MEDS ORDERED: SODIUM CHLORIDE 0.9% 500 ML IV SCH (20:37)
[2025-03-11] MEDS ORDERED: METOPROLOL TARTRATE 1 MG/ML VIAL IV PRN (20:37)
[2025-03-11] MEDS ORDERED: CARBOHYDRATES FOR HYPOGLYCEMIA PO PRN (20:37)
[2025-03-11] MEDS ORDERED: MAGNESIUM HYDROXIDE SUSP 30 ML UDC PO PRN (20:37)
[2025-03-11] MEDS ORDERED: MoRPHine SULFATE 4 MG/ML 1 ML CARP\\VIAL IV PRN ×2 (20:37→20:45)
[2025-03-11] MEDS ORDERED: GLUCAGON FOR INJ 1 MG VIAL SQ PRN (20:37)
[2025-03-11] MEDS ORDERED: POLYETHYLENE (MIRALAX) 17 GM PACK PO PRN (20:37)
[2025-03-11] MEDS ORDERED: NITROGLYCERIN SL 0.4 MG/TAB TAB SL PRN (20:37)
[2025-03-11] MEDS ORDERED: ALUMINUM/MAGNESIUM SUSP 30 ML UDC PO PRN (20:37)
[2025-03-11] MEDS ORDERED: DEXTROSE 50% 50 ML SYRINGE IV PRN (20:37)
[2025-03-11] MEDS ORDERED: GLUCOSE 40% GEL 15 GM TUBE PO PRN (20:37)
[2025-03-11] MEDS ORDERED: ZOLPIDEM TARTRATE 5 MG TAB PO PRN (20:37)
[2025-03-11] MEDS ORDERED: KETOROLAC TROMETHAMINE 15 MG/ML VIAL IV PRN (20:47)
[2025-03-11 21:27] LABS: Thyroid Stimulating Hormone 1.110 uIu/ml (0.300-4.500)
[2025-03-11] MEDS: METOPROLOL SUCC 25MG EXT REL TAB PO SCH (21:40)
[2025-03-11] MEDS: TAMSULOSIN HCL 0.4 MG CAP PO SCH (21:41)
[2025-03-11] MEDS: ACETAMINOPHEN 325 MG TAB PO SCH (21:42)
[2025-03-11] MEDS: LANTUS PER UNIT CHARGE SQ SCH (21:47)
[2025-03-11] MEDS: INSULIN ASPART PER UNIT CHARGE SC SCH (21:47)
[2025-03-12] MEDS: INSULIN ASPART PER UNIT CHARGE SC SCH (06:26)
[2025-03-12 07:17] LABS: Hematocrit (blood only) 41.1 % (42.0-52.0); Hemoglobin 14.7 g/dl (14.0-18.0); Mean Corpuscular Hemoglobin 31.5 pg (25.0-34.0); Mean Corpuscular Volume 88.2 fL (80.0-100.0); Platelet Count 179 K/uL (130-400); RDW Standard Deviation 42.7 fL (36.4-46.3); Red Blood Count 4.66 M/uL (4.70-6.10); White Blood Count 8.50 K/ul (4.8-10.8)
[2025-03-12 07:37] LABS: Anion Gap 6.0 (3-11); Blood Urea Nitrogen 16.0 mg/dl (6-23); Calcium 8.6 mg/dl (8.6-10.3); Carbon Dioxide 28.0 mmol/L (21-32); Chloride 106.0 mmol/L (98-107); Creatinine Clr Calc Pharmacy 93.6 ml/min; Glucose 209.0 mg/dl (70-99(Fasting)); Potassium 4.1 mmol/L (3.5-5.1); Sodium 140.0 mmol/L (136-145)
[2025-03-12 07:45] LABS: Hemoglobin A1C 9.8 % (4.5-5.6)
[2025-03-12] MEDS: VALSARTAN 80 MG TAB PO SCH (08:34)
[2025-03-12] MEDS: CLOPIDOGREL BISULFATE 75 MG TAB PO SCH (08:34)
[2025-03-12] MEDS: ASPIRIN 81 MG ECTAB PO SCH (08:35)
[2025-03-12] MEDS: ATORVASTATIN 40 MG TAB PO SCH (08:37)
--- NOTE | 2025-03-12 08:44 | XRay Report ---
EXAM: XR KUB/Abdomen 1 view CLINICAL HISTORY: kidney stone. TECHNIQUE: X-ray image of the abdomen was obtained in the supine position. COMPARISON: 03/11/2025. FINDINGS: Gas Pattern: The gas pattern within the abdomen is normal. No evidence of bowel obstruction or distention is seen. Soft Tissues: The soft tissues of the abdomen appear normal, without evidence of masses. The liver, spleen, and kidneys are of normal size and position. A faintly opaque shadow is seen at the level of the L4 vertebra, in line with the left ureteric calculus. Both renal areas are partially visualized due to overlying bowel gases; no renal calculus is seen on either side. IMPRESSION: 1. Faintly opaque shadow along the left aspect of the L4 vertebra, likely left ureteric calculus, unchanged. 2. Tiny bilateral renal calculi identified on prior CT are not well appreciated on X-ray. Electronically signed by Jose Serrato 03-12-2025 08:43 AM
[2025-03-12 11:17] VITALS: PULSE 62; RESP 20; TEMP 97.3; O2SAT 90
[2025-03-12] MEDS ORDERED: Nursing to Pharmacy Communication SCH ×2 (11:30→14:00)
--- NOTE | 2025-03-12 12:40 | Urology Consultation ---
Date of Consultation March 12, 2025 Assessment & Plan (1) Left ureteral calculus: 69-year-old male admitted for acute left flank pain secondary to an obstructing 5 mm mid left ureteral stone and new onset of atrial fibrillation with RVR. Patient afebrile with stable vitals Labs today reviewedcreatinine 0.87, WBC 8.5, hemoglobin 14.7 Urinalysis on arrival was not suggestive of infection CT abdomen pelvis reviewed and discussed5 mm mid left ureteral stone with minimal hydronephrosis, additional nonobstructing punctate renal calculi bilaterally Subjectively doing well at present, no flank pain We discussed options for stone management including trial of passage with medical expulsive therapy versus surgical intervention We discussed he has a decent probability of passing his stone After discussion, he elects trial of passage No acute intervention planned at this time, he can have diet today Recommend liberal hydration, tamsulosin and pain management Recommend strain all urine, please provide urine strainer upon discharge Will arrange outpatient follow-up with our service for ongoing management will sign off, please contact our service with any additional questions or changes in patient's status History of Present Illness Reason for Consultation: L ureteral stone Attending Physician: Marcela Hurtado MD History of Present Illness This is a 69-year-old male with past medical history of CAD status post MS and cardiac stents, hypertension, dyslipidemia, and diabetes who presented to the emergency department on 03/11/2025 for evaluation of sudden onset of left flank pain, nausea and dry heaves. On arrival to ED, he was afebrile and hypertensive. Labs showed WBC 8.78, hemoglobin 16.7, creatinine 1.12, glucose 245. Urinalysis demonstrated 3+ protein, 3+ glucose, 3+ blood, 0-5 WBC, >20 RBC, negative for bacteria. Workup included CT abdomen pelvis. CT independently reviewed and demonstrates an obstructing 5 mm calculus in the left mid ureter causing minimal hydronephrosis. Additional punctate renal calculi bilaterally. In the ED he went into atrial fibrillation with RVR. He was admitted to the hospital medicine service for new onset atrial fibrillation, acute left flank pain secondary to left ureteral calculus. Urology is consulted today for left ureteral calculus. Patient is seen and examined at bedside this afternoon. He is awake and sitting up in bedside chair. No prior history of kidney stones. He denies flank pain at present. He is voiding spontaneously without difficulty. No dysuria or hematuria. No nausea, vomiting, fever or chills. Labs todaycreatinine 0.87, WBC 8.5, hemoglobin 14.7 Allergies Allergy/AdvReac Type Severity Reaction Status Date / Time labetalol AdvReac Intermediate hallucinati Verified 03/11/25 17:23 on Home Medications Medication Instructions Recorded Confirmed Type nitroglycerin 0.4 mg sublingual 0.4 mg sublingual Q5M PRN chest 09/23/20 03/11/25 Rx tablet (Nitrostat) pain #1 tab aspirin 81 mg tablet,delayed 81 mg PO QAM #0 tabs 10/06/23 03/11/25 Rx release amlodipine 10 mg tablet 10 mg PO DAILY #90 tabs 02/17/24 03/11/25 Rx atorvastatin 80 mg tablet 80 mg PO DAILY #90 tabs 02/17/24 03/11/25 Rx metformin 500 mg tablet,extended 500 mg PO BID #180 tabs 02/17/24 03/11/25 Rx release 24 hr clopidogrel 75 mg tablet (Plavix) 75 mg PO DAILY #90 tabs 09/20/24 03/11/25 Rx valsartan 320 mg tablet 320 mg PO DAILY #90 tabs 10/25/24 03/11/25 Rx metoprolol succinate 25 mg 25 mg PO DAILY #90 tabs 11/06/24 03/11/25 Rx tablet,extended release 24 hr glipizide 2.5 mg tablet, extended 2.5 mg PO DAILY #30 tabs 12/28/24 03/11/25 Rx release 24 hr Patient History Medical History Precordial chest pain Hypertensive emergency NSTEMI (non-ST elevated myocardial infarction) HTN (hypertension) CAD (coronary artery disease) Psoriasis Lymphadenopathy Angina pectoris Dizziness De Quervain's tenosynovitis Acute myocardial infarction Surgical History History of knee surgery Family History Mother Cancer Father Coronary heart disease Diabetes Brother Diabetes Social History Smoking Status: Former smoker Tobacco Type: Cigarettes Age Started Using Tobacco: 20; Age Quit Using Tobacco: 56; packs per day: 2; Smoking End Date: 2010; Hx Alcohol Use: No Hx Substance Use: No Preferred Language: Tajik Communication Ability: Effective Wharf Hand Required: No Beliefs That Will Affect Care: None Current Living Situation: Spouse current occupational status: employed Feels Safe at Home: Yes Safety Concerns: Feels Safe At This Time Assistive Devices: None Review of Systems Review of Systems: All systems reviewed & are unremarkable except as noted in HPI & below Physical Exam Constitutional: well developed and well nourished; no acute distress Respiratory: normal respiratory effort; no respiratory distress and no labored breathing Gastrointestinal (Abdomen): Inspection/Auscultation: abdomen normal to inspection Musculoskeletal: Head/Neck/Chest: normocephalic Neurologic: moves all extremities and awake Psychiatric: Orientation: alert and oriented x 3 Results & Data Vital Signs (Past 12 Hours) Vital Signs Temp Pulse Pulse Resp BP Pulse Ox O2 Del Method 03/12/25 11:16 36.3 C L 62 20 145/73 H 90 Room Air 03/12/25 09:26 57 L 03/12/25 09:26 Nasal Cannula 03/12/25 07:08 36.5 C 56 L 19 136/72 96 Nasal Cannula 03/12/25 03:16 36.4 C L 54 L 16 161/75 H 94 Nasal Cannula O2 Flow Rate 03/12/25 11:16 03/12/25 09:26 03/12/25 09:26 4 03/12/25 07:08 4 03/12/25 03:16 4 PG Care Time/CCT Total # of Minutes Spent Total Time Spent with Patient: Total time spent is greater than 50% in coordination of care (as documented) at patient's floor/unit and/or counseling patient: Coding Level of Care Code 93425 IN/OBS CONSULT LVL 4,60M Diagnoses Left ureteral calculus N20.1
--- NOTE | 2025-03-12 13:53 | XCELERA ---
[id number] \\[id number]
--- NOTE | 2025-03-12 14:30 | Discharge Summary ---
Discharge Summary Date of Service March 12, 2025 Principal Dx & Hospital Course #1 = Principal Diagnosis (1) New onset atrial fibrillation: (2) Left ureteral calculus: (3) Acute left flank pain: (4) Type 2 diabetes mellitus: (5) Patient cannot afford medications: Plan # Left-sided kidney stone Stone in mid-ureter, 5 mm. May pass spontaneously or require intervention. Mild hydro and Cr is normal. Electrolytes normal. Toradol, IV opioids, IV fluids, flomax at admission Pain much better today, urology consulted. Trial of spontaneous passage and follow up with urology in office. Strain urine -cont APAP, oxycodone PRN, sparing amount NSAIDS # New onset rapid atrial fibrillation Likely experienced previous episodes, first documented. IV metoprolol given in ED and Metoprolol XL increased. Converted to NSR in ED and remains in sinus rhythm. Symptoms of lightheadedness resolved TTE obtained - unchanged from prior, atria not very dilated, normal EF. TSH normal Discussed with his floral arranger Dr. Whitmore - stop aspirin and continue plavix and anticoagulation -metoprolol increased -started apixaban, discussed risks:benefits -follow up with cardiology # Psoriasis Not on medication as previous topical treatment . In past was on MTX at some point. # Hypertension # CAD - Per Dr. Whitmore' recent note: "-- inferior STEMI post PCI with 2 BMS to RCA 05/2011 -- JERRICA to mid LAD in stent restenosis 06/2016 -- JERRICA to late-mid LAD disease 09/2023 --residual moderate circumflex, small ostial diagonal disease. Patent mid RCA stents" -stable -cont plavix and asa replaced by apixaban -ARB/BB/CCB, no GLP-1 or SGLT2 due to cost -amlodipine, continue valsartan, increased metoprolol -monitor BP response # DM type 2 - A1c increased to 9% once off SGLT2 - following up with diabetes clinic, considering transitioning to insulins due to costs. Metformin + glipizide has not been very effective Admission HPI Per Admitting Provider The patient consented to use of [employer] copilot, an AI based tool that will listen to our encounter and draft a clinical note based on our conversation. All notes will be reviewed and edited by me before entering them into the medical record. 69 y/o with hx CAD and DM who came in with left back/flank pain Acute onset this afternoon, left flank/back pain and found to have L mid- ureteral 5 mm kidney stone While he was in the ED he went into new onset rapid afib. 2L IVF given. metoprolol 5 mg IV x 2 heart rate now in 90-100s. Mild chest tightness with afib, resolved after rate controlled. Sudden onset of left-sided flank and back pain today, he initially attributed to back strain. Radiating to LLQ of abdomen. First encounter with a kidney stone. Pain initially severe, now low level, but escalated again to moderate during interview. No hematuria or dysuria. No more nausea once pain controlled but reports dizziness, possibly related to heart condition. No abdominal pain or diarrhea. Normal diet and hydration. No leg swelling. Given medication for pain relief which did help. In the past he remembers two episodes of chest discomfort, lasting 5-10 minutes, with fast irregular pulse. Hole Digger Truck Driver Dr. Whitmore advised reporting recurrence and would arrange heart monitor. No follow-up due to no recurrence. No shortness of breath but lightheaded when standing today up to bathroom. Chest pressure earlier today, now resolved. Currently on metoprolol XL 25 mg daily, did take all his usual meds this AM except glipizide and one other med he ran out of this week. No abnormal bleeding or bloody stools. On aspirin and Plavix due to multiple stents. Not on medication for psoriasis as previous topical treatment . Previously used clobetasol, which was effective. PCP notes reviewed as well as floral arranger notes - he has had difficulty affording the more expensive medications. Discharge Exam General Appearance: sitting in chair Vital signs: Within normal limits. HEENT: Within normal limits. Respiratory: Clear apices, CTAB posteriorly Cardiovascular: reg heart sounds, no murmur. Gastrointestinal: Nontender. ND +BT Extremities: No leg edema, normal DP pulses. Skin: Warm and dry, psoriasis plaques extensive on lower back, scattered on elbows and knees Neurological: Normal. Psychiatric: Normal. Discharge Plan Discharge Items Patient Disposition: Home - Self-Care Reason For Visit: KIDNEY STONE, AFIB Discharge Diagnosis: Kidney stone, Rapid atrial fibrillation Condition on Discharge: Good Activity: Resume your previous activity Non-emergency contact: Primary Care Provider, Hole Digger Truck Driver and Urologist Call non-emergency contact if: you have any medication questions, your symptoms worsen and you have a fever Follow-up/Referrals: Aiden Whitmore MD [Physician] - 03/27/25 9:45 am Negrito Tran DO [Physician] - 04/02/25 9:00 am Bry Serrato DO [Primary Care Provider] - 03/19/25 1:00 pm Diet: Carb Consistent or DM2 and Low Sodium (2gm) Addtl Attending Provider Instructions: You were treated for pain from a left sided kidney stone It has not passed yet, but based on the size of the stone there is a pretty good chance it will pass on its own If it does not pass, it can be addressed by a urology procedure -you can cautiously take occasional NSAID medication for stone pain (naproxen/aleve, or ibuprofen). Avoid using daily or multiple times a day, however, because of the blood thinner - the combination can increase the risk of stomach bleeding -acetaminophen as directed is safe to take for pain and does not interact with blood thinners or harm the kidneys -I sent a prescription for some oxycodone as needed for more severe pain -I sent a prescription for tamsulosin (flomax) to help relax the ureter and let the stone pass. This medicine can sometimes cause lightheadedness -strain your urine and save the stone for analysis if it passes -Urology clinic should be calling you to schedule You had an episode of rapid atrial fibrillation, A-fib is a common arrhythmia where the heart beat is irregular and can go too fast Having A-fib increases your risk of stroke, and we use blood thinner (Apixaban) to reduce the stroke risk To control the heart rate I increased your metoprolol dose -Dr. Whitmore wants you to continue taking the plavix (clopirogrel) but stop the a spirin -Your heart Echo looks good - unchanged from before -follow up in cardiology clinic We discussed the risks and benefits of a blood thinner (anticoagulation), including the risks of gastrointestinal bleeding - seek medical attention if you have black/tarry or bloody stool. There is also a very small but real risk of intracranial hemorrhage - related to head trauma or bleeding-type stroke, that can be life threatening. Call 911 if you have altered mental status or symptoms of stroke (weakness or numbness of face/arm/leg, trouble speaking or understanding, trouble with walking/balance Cardiologists recommend blood thinner in your case because the risk of stroke is much higher than the risk of severe bleeding Generally avoid NSAID medications (motrin/advil/ibuprofen, aleve/naproxen) while taking blood thinner because they increase the risk of gastrointestinal bleeding. Acetaminophen is safe to take as directed and will not bother your stomach or kidneys. It was a pleasure taking care of you in the hospital, Marcela Hurtado MD Pending Studies at Discharge: No Stand-Alone Forms: My [facility], Pain - Opioid Pain Management Medications and DC Order Prescriptions: New tamsulosin 0.4 mg Capsule 0.4 mg PO HS Qty: 30 0RF metoprolol succinate 25 mg Tablet Extended Release 24 Hr 50 mg PO DAILY Qty: 30 0RF oxycodone 5 mg tablet 5 - 10 mg PO Q4H PRN (Reason: pain) Qty: 20 0RF Continued nitroglycerin [Nitrostat] 0.4 mg tablet, sublingual 0.4 mg SL Q5M PRN (Reason: chest pain) Qty: 1 0RF Rx Instructions: NEEDS A NEW REFILL valsartan 320 mg tablet 320 mg PO DAILY Qty: 90 3RF glipizide 2.5 mg tablet extended release 24hr 2.5 mg PO DAILY Qty: 30 6RF Rx Instructions: NEED TO WHEEL ALIGNMENT MECHANIC FROM PHARMACY. take with breakfast/food/first meal of the day clopidogrel [Plavix] 75 mg tablet 75 mg PO DAILY Qty: 90 3RF metformin 500 mg tablet extended release 24 hr 500 mg PO BID Qty: 180 3RF amlodipine 10 mg tablet 10 mg PO DAILY Qty: 90 3RF atorvastatin 80 mg tablet 80 mg PO DAILY Qty: 90 3RF Discontinued metoprolol succinate 25 mg tablet extended release 24 hr 25 mg PO DAILY Qty: 90 3RF aspirin 81 mg Tablet,Delayed Release (Dr/Ec) 81 mg PO QAM Qty: 0 0RF Discharge Orders: Discharge Order (Routine); Ordered 03/12/25 Ordered By: Marcela Whatley/Other Patient Handouts: Apixaban Oral Tablet, AFib Dc, ED Kidney Stone with Pain Admission Data Admit Date/Time: 03/11/25 19:13 Attending Provider: Marcela Hurtado Admit Provider: Marcela Hurtado Primary Care Provider: Bry Serrato Other Providers: Marcela Hurtado Stephen H. Other Interventions: Discharge Summary Assessment (RN) Last Done: 03/12/25 14:51 Hospital Stay Data Consultations 03/11/25 18:38 ED Decision to Admit Stat 03/12/25 10:24 Consult Urology Routine Diagnostic Imagining Performed 03/11/25 15:25 CT abd pelvis wo con Stat Pending Results Patient Have Any Pending Studies at Discharge: No Discharge Instructions Given to Patient (Per Discharging Provider) You were treated for pain from a left sided kidney stone It has not passed yet, but based on the size of the stone there is a pretty good chance it will pass on its own If it does not pass, it can be addressed by a urology procedure -you can cautiously take occasional NSAID medication for stone pain (naproxen/aleve, or ibuprofen). Avoid using daily or multiple times a day, ho wever, because of the blood thinner - the combination can increase the risk of stomach bleeding -acetaminophen as directed is safe to take for pain and does not interact with blood thinners or harm the kidneys -I sent a prescription for some oxycodone as needed for more severe pain -I sent a prescription for tamsulosin (flomax) to help relax the ureter and let the stone pass. This medicine can sometimes cause lightheadedness -strain your urine and save the stone for analysis if it passes -Urology clinic should be calling you to schedule You had an episode of rapid atrial fibrillation, A-fib is a common arrhythmia where the heart beat is irregular and can go too fast Having A-fib increases your risk of stroke, and we use blood thinner (Apixaban) to reduce the stroke risk To control the heart rate I increased your metoprolol dose -Dr. Whitmore wants you to continue taking the plavix (clopirogrel) but stop the aspirin -Your heart Echo looks good - unchanged from before -follow up in cardiology clinic We discussed the risks and benefits of a blood thinner (anticoagulation), including the risks of gastrointestinal bleeding - seek medical attention if you have black/tarry or bloody stool. There is also a very small but real risk of intracranial hemorrhage - related to head trauma or bleeding-type stroke, that can be life threatening. Call 911 if you have altered mental status or symptoms of stroke (weakness or numbness of face/arm/leg, trouble speaking or understanding, trouble with walking/balance Cardiologists recommend blood thinner in your case because the risk of stroke is much higher than the risk of severe bleeding Generally avoid NSAID medications (motrin/advil/ibuprofen, aleve/naproxen) while taking blood thinner because they increase the risk of gastrointestinal bleeding. Acetaminophen is safe to take as directed and will not bother your stomach or kidneys. It was a pleasure taking care of you in the hospital, Marcela Hurtado MD Total Time Total Time Spent Total Time Spent (In Minutes): I personally spent: 40 minutes today on clinical care activities including: reviewing chart notes and vital signs reviewing labs reviewing studies discussion with sap consultant(s) urology, floral arranger examining and counseling the patient writing prescriptions, discharge instructions documentation Coding Level of Care Code 92486 INP/OBS DISCH >30 MIN Diagnoses New onset atrial fibrillation I48.91 Left ureteral calculus N20.1 Acute left flank pain R10.A2 Type 2 diabetes mellitus E11.9 Patient cannot afford medications Z59.86
[2025-03-12 14:58] VITALS: BP 183/85
--- NOTE | 2025-03-12 15:04 | Electrocardiogram Report ---
Test Reason : Blood Pressure : */* mmHG Vent. Rate : 138 BPM Atrial Rate : * BPM P-R Int : * ms QRS Dur : 80 ms QT Int : 302 ms P-R-T Axes : * -5 140 degrees QTcB Int : 457 ms Atrial fibrillation with rapid ventricular response Inferior infarct , age undetermined Abnormal ECG When compared with ECG of 05-Oct-2023 08:22, Atrial fibrillation has replaced Sinus rhythm Vent. rate has increased by 82 bpm Non-specific change in ST segment in Inferior leads ST now depressed in Lateral leads Nonspecific T wave abnormality now evident in Inferior leads T wave inversion no longer evident in Anterolateral leads Confirmed by Ochoa Lozoya ([id number]) on 03/12/2025 3:04:05 PM Referred By: REFERRED SELF Confirmed By: Ochoa Lozoya
--- NOTE | 2025-03-12 15:04 | Electrocardiogram Report ---
Test Reason : Blood Pressure : */* mmHG Vent. Rate : 149 BPM Atrial Rate : * BPM P-R Int : * ms QRS Dur : 80 ms QT Int : 306 ms P-R-T Axes : * -8 161 degrees QTcB Int : 481 ms Atrial fibrillation with rapid ventricular response Inferior infarct (cited on or before 11-Mar-2025) Abnormal ECG When compared with ECG of 11-Mar-2025 16:22, (unconfirmed) No significant change was found Confirmed by Ochoa Lozoya ([id number]) on 03/12/2025 3:04:15 PM Referred By: REFERRED SELF Confirmed By: Ochoa Lozoya
--- NOTE | 2025-03-12 15:13 | Electrocardiogram Report ---
Test Reason : Blood Pressure : */* mmHG Vent. Rate : 59 BPM Atrial Rate : 59 BPM P-R Int : 174 ms QRS Dur : 90 ms QT Int : 408 ms P-R-T Axes : 46 4 20 degrees QTcB Int : 403 ms Sinus bradycardia Inferior infarct (cited on or before 11-Mar-2025) Abnormal ECG When compared with ECG of 11-Mar-2025 16:41, (unconfirmed) Significant changes have occurred Confirmed by Ochoa Lozoya ([id number]) on 03/12/2025 3:13:42 PM Referred By: REFERRED SELF Confirmed By: Ochoa Lozoya
[2025-03-12] MEDS ORDERED: INSULIN ASPART PER UNIT CHARGE SC SCH (16:30)
== END 2025-03-12 16:14 | disposition home or self-care (01) | DRG 694 ==
LOC: ED 14:57 → 2S 19:13